=== PATIENT | female | born 1935 | race Caucasian/White ===

== ENCOUNTER → 2016-09-28 | Outpatient (REF) | payer MEDICARE ==
[2016-09-28 14:12] LABS: ALBUMIN 3.5 GM/DL (3.2-5.2); ALBUMIN/GLOBULIN RATIO 1.09 (1.00-1.93); BILIRUBIN,TOTAL 0.4 MG/DL (0.2-1.0); CALCIUM LEVEL 9.1 MG/DL (8.8-10.2); CREATININE FOR GFR 1.15 MG/DL (0.55-1.02); FREE T4 1.31 NG/DL (0.76-1.46); GLOMERULAR FILTRATION RATE 48.3 (>32); POTASSIUM SERUM 4.5 MEQ/L (3.5-5.1); TOTAL PROTEIN 6.7 GM/DL (6.4-8.2)
== END ==
LOC: M LABDRAW1 12:55
PROVIDERS: ATTEND Emergency Medicine
DX: E78.2 Mixed hyperlipidemia (principal); I10 Essential (primary) hypertension; E03.9 Hypothyroidism, unspecified; E55.9 Vitamin D deficiency, unspecified; R73.01 Impaired fasting glucose

== ENCOUNTER → 2017-02-16 | Outpatient (CLI) | payer MEDICARE ==
--- NOTE | 2017-02-16 12:56 | REP ---
Clinical: Dyspnea . Comparison: None . Technique: PA and lateral. Findings: The mediastinum and cardiac silhouette are normal. The lung nogueira are clear and without acute consolidation, effusion, or pneumothorax. The skeletal structures are intact and normal. Impression: 1. No acute cardiopulmonary process. Signed by Hayden Ernst MD 02/16/2017 12:47 P
== END ==
LOC: M WUC 12:23
PROVIDERS: ATTEND Emergency Medicine
DX: R06.00 Dyspnea, unspecified (principal)

== ENCOUNTER → 2018-10-13 | Outpatient (CLI) | payer MEDICARE ==
--- NOTE | 2018-10-13 10:11 | REP ---
Clinical: Preoperative assessment . Comparison: 02/16/2017 . Technique: PA and lateral. Findings: The mediastinum and cardiac silhouette are normal. The lung nogueira are clear and without acute consolidation, effusion, or pneumothorax. The skeletal structures are intact and normal. Impression: 1. No acute cardiopulmonary process. Electronically Signed by Hayden Ernst MD 10/13/2018 10:03 A
== END ==
LOC: M WUC 08:45
PROVIDERS: ATTEND Obstetrics & Gynecology
DX: R07.1 Chest pain on breathing (principal); C51.9 Malignant neoplasm of vulva, unspecified

== ENCOUNTER → 2018-10-25 | Outpatient (CLI) | payer MEDICARE ==
[2018-10-25 13:38] LABS: ALBUMIN 3.3 GM/DL (3.2-5.2); BILIRUBIN,TOTAL 0.4 MG/DL (0.2-1.0); CALCIUM LEVEL 8.7 MG/DL (8.8-10.2); CHOLESTEROL RISK RATIO 5.225 (<5); FREE T4 1.34 NG/DL (0.76-1.46); GLOMERULAR FILTRATION RATE 56.5 (>32); POTASSIUM SERUM 4.4 MEQ/L (3.5-5.1); THYROID STIMULATING HORMONE 1.38 uIU/ML (0.358-3.740); TOTAL PROTEIN 6.6 GM/DL (6.4-8.2)
[2018-10-25 14:22] LABS: HEMOGLOBIN A1c 5.6 %
== END ==
LOC: M WUC 09:06
PROVIDERS: ATTEND Family Medicine
DX: I10 Essential (primary) hypertension (principal); R73.01 Impaired fasting glucose; E03.9 Hypothyroidism, unspecified

== ENCOUNTER → 2019-03-08 | Outpatient (REF) | payer MEDICARE ==
[~2019-03-08] MED LIST: ASPI81CH33 PO; CALC-190 PO; IRON65TA2 PO; LEVO100T5 PO; METO50TA7 PO; VITA500T40 PO; [UNRECOGNIZED DRUG - OTHER] PO
[2019-03-08 13:16] LABS: APPEARANCE, URINE CLOUDY (CLEAR); BACTERIA, URINE AUTO 1+ (NEGATIVE); BILIRUBIN, URINE AUTO NEGATIVE (NEGATIVE); BLOOD, URINE BLOOD NEGATIVE (NEGATIVE); COLOR, URINE YELLOW (YELLOW); GLUCOSE, URINE (UA) AUTO NEGATIVE (NEGATIVE); KETONE, URINE AUTO NEGATIVE (NEGATIVE); LEUKOCYTE ESTERASE, URINE AUTO 3+ (NEGATIVE); MUCUS, URINE SMALL (NEGATIVE); NITRITE, URINE AUTO NEGATIVE (NEGATIVE); PROTEIN, URINE AUTO NEGATIVE (NEGATIVE); RBC, URINE AUTO 8 /HPF (0-3); SPECIFIC GRAVITY URINE AUTO 1.017 (1.002-1.035); SQUAMOUS EPITHELIAL CELL UR AU 2 /HPF (0-6); UROBILINOGEN, URINE AUTO 0.2 mg/dL (0.0-2.0); WBC, URINE AUTO 19 /HPF (0-3)
== END ==
LOC: M LAB REF 12:51
PROVIDERS: ATTEND Physician Assistant Medical
DX: R32 Unspecified urinary incontinence (principal)

== ENCOUNTER → 2019-03-12 | Outpatient (CLI) | payer MEDICARE ==
[~2019-03-12] MED LIST changes: +CO Q200C10 PO; +CYAN500T3 PO; +MULTTAB58 PO
--- NOTE | 2019-03-13 15:35 | RADONC ---
RADIATION ONCOLOGY CONSULTATION NOTE DATE: 03/12/2019 CHART NUMBER: [id number] DIAGNOSIS: Vulvar cancer. STAGE: At least stage CRYSTAL, [id number] versus stage IVB, [id number]. ECOG PERFORMANCE STATUS: 1 CONSULTATION NOTE: Ms. 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 HISTORY OF PRESENT ILLNESS: The patient apparently had a lesion involving her left vulva and was seen by Dr. Dobson. On 11/24/2018, she underwent radical vulvectomy and left inguinal lymph node dissection. Pathology revealed a 12.7 cm poorly differentiated invasive squamous cell carcinoma with tumor present at the lateral margin of resection. A total of four left inguinal lymph nodes were sampled, two of the four lymph nodes were positive for metastatic disease with extranodal extension present. In addition, soft tissue in the left groin aspirate showed poorly differentiated squamous cell carcinoma. The depth of invasion was noted to be 3.3 cm for the primary mass. The patient subsequently went into some type of rehabilitation, but apparently reports that more recently she has noticed an increasing bulky mass progressing at her original site of disease. In addition, she reports that now it is spreading and has circumferentially involved her anal region and perianal area. She reports that she was told this was a hematoma. She is now presenting for my evaluation. PAST MEDICAL HISTORY: The patient's past medical history is positive for hepatitis with jaundice as well as hypertension. ALLERGIES: The patient is ALLERGIC to BARIUM. SOCIAL HISTORY: The patient had smoked one pack of cigarettes per day for many years. She quit [id number]. She does not abuse alcohol. FAMILY HISTORY: The patient's family history is positive for a father with cancer of some unknown type. Her mother also of unknown cancer. She has a brother with prostate cancer. REVIEW OF SYSTEMS: The patient's review of systems is positive for some strange discomfort or pain in the groin area episodically and a bulky feeling causing some difficulty with comfortable walking. She also reports some fatigue and loss of appetite. Her review of systems is otherwise noncontributory. She denies nausea, vomiting, fevers, chills, night sweats, diplopia, headaches, anxiety or depression, anorexia, weight loss, visual disturbances, chest pain, urinary or bowel difficulties, bone pain, or neurological problems. PHYSICAL EXAMINATION: The patient is a well-developed, well-nourished female in no acute distress. HEENT exam is normocephalic, atraumatic. Extraocular movements are intact. There is no palpable cervical, supraclavicular, infraclavicular, axillary, or inguinal lymphadenopathy present. Lungs are clear to auscultation and percussion. Heart has a regular rate and rhythm. Abdomen is benign with no hepatosplenomegaly, masses, or tenderness. Skeletal examination reveals no tenderness to pressure or percussion of the bony skeleton. Extremities reveal no clubbing, cyanosis, or edema. Neurologic exam is grossly intact, as is the remainder of the physical examination. Genital examination reveals a large discolored mass involving the vulva, which is bulky and measures approximately 7 cm in all directions. The nodular disease extends down and is involving the anal/rectal area and the perianal area circumferentially. This is all fixed and nodular throughout. Digital rectal examination because of this was not attempted. The inguinal scars are well-healed. ASSESSMENT: Clearly, we have any significant progression of disease here since surgery 3-1/2 months ago. I have explained to this patient that this is not a hematoma and that, clearly, this is disease. Indeed at this point, the vulvar lesion is breaking through the skin. I have placed this patient on our list for discussion at our multidisciplinary tumor conference tomorrow. In addition, I have spoken with our medical oncologist, Dr. Sasha Rueda MD to see if we can expedite her consultation with medical oncology as well. In addition, I am ordering a PET scan to further stage this patient. Clearly, we have some rapidly progressive disease here, and distant metastatic disease is likely and needs to be checked and evaluated on. I have discussed with the patient in detail the potential benefits as well as potential side effects of external beam radiation therapy in attempt to achieve some type of local control. We discussed logistics of treatment planning, simulation subsequent fractionated daily radiation treatments. I have scheduled the patient for CT simulation and subsequent initiation of treatment planning, which will be completed once the PET scan is obtained. Further recommendations will be made following our tumor board tomorrow. Unfortunately, considering the amount of disease at this point, even radiation with systemic therapy is unlikely to achieve any long-term control of this disease. We are attempting, however, to deliver some type of palliation hopefully for some extended time period of local control. cc: MD Sasha Munoz MD Karen Williams, MD
== END ==
LOC: M ONCR 12:56
PROVIDERS: ATTEND Radiology Radiation Oncology
DX: C51.9 Malignant neoplasm of vulva, unspecified (principal)

== ENCOUNTER → 2019-03-20 | Outpatient (CLI) | payer MEDICARE ==
[~2019-03-20] MED LIST changes: +MS C15TA8 PO; +ONDA-83 PO; +OXYC-517 PO; +SILV40CR TOP
--- NOTE | 2019-03-21 15:21 | REP ---
HISTORY: New diagnosis of aggressive squamous cell carcinoma of the vulva. COMPARISON: There are no priors for comparison. After the intravenous administration of 8.43 mCi of FDG-18 triplane whole body PET/CT was performed from the skull base to the mid thigh. There is intense hypermetabolic activity seen on the left in the paravulvar region. This is seen arising from a mass in the left anterior perineum which measures approximately 6.9 x 6.9 x 6.8 cm. The periphery of this mass has the highest SUV values which are approximately 15. The central area of the mass is devoid of hypermetabolism suggesting central necrosis. Within the perineum between the mass and the anus, there is linear hypermetabolism with SUV values ranging from 3.5 to 5.9. There is no evidence of hypermetabolic lymphadenopathy. The CT component of today's examination shows hyperdensity within the gallbladder essentially unchanged from an outside CT of 11/14/2018. There is no evidence of hypermetabolic lymphadenopathy. The CT component of today's examination shows hyperdensity within the gallbladder essentially unchanged from an outside CT of 11/14/2018. There is hypermetabolism in multiple vertebral bodies with SUV values in the 3.5 to 3.7 range and rather diffusely suggestive of chemo reactive change. This needs to be correlated clinically. IMPRESSION: Large hypermetabolic mass in the pelvic region on the left as described above. Electronically Signed by José Manuel Al DO 03/21/2019 05:01 P
== END ==
LOC: M PLARAD 10:19
PROVIDERS: ATTEND Radiology Radiation Oncology
DX: C51.9 Malignant neoplasm of vulva, unspecified (principal)

== ENCOUNTER → 2019-03-22 | Outpatient (CLI) | payer MEDICARE ==
[~2019-03-22] MED LIST changes: +LIDOCAINE 1% MDV 20ML VIAL As Ordered ONE; +MIDAZOLAM INJ 2 MG/2 ML VIAL (J2250) As Ordered ONE; -MS C15TA8 PO; -ONDA-83 PO; -SILV40CR TOP; +ceFAZolin 1GM INJ (J0690 PER 500MG) As Ordered ONE; +ceFAZolin 1GM INJ (J0690 PER 500MG) IV ONE; +diphenhydrAMINE INJ 50MG/ML VIAL (J1200) As Ordered ONE; +fentaNYL 100 MCG/2 ML INJECTION (J3010) As Ordered ONE
--- NOTE | 2019-03-22 09:07 | IRHP ---
[facility] IR Pre-Procedure H & P General Date of Service: Mar 22, 2019 Procedure: Same Day Surgery Interval History and Physical I have seen the patient and reviewed last H & P performed within 30 days. There is no significant interval change. History of Present Illness Chief Complaint The patient is a 83-year-old female admitted with vulva cancer here for port placement for CHEMO. PRE-PROCEDURE DIAGNOSIS: vulva ca HEART: normal rate LUNGS: normal breathing at rest ASA Classification ASA Classification: II-Mild systemic disease Mallampati Score: I NPO: Yes Problems with prior sedation: No Obstructive Sleep Apnea: No Plan moderate sedation Allergies Coded Allergies: No Known Allergies (Unverified , 03/20/19) Home Medications Scheduled Aspirin (Aspirin), 81 MG PO DAILY, (Reported) Calcium Carbonate/Vitamin D3 (Calcium 1,000 + D3 Caplet), 1 TAB PO DAILY, (Reported) Cyanocobalamin (Vitamin B-12) (Vitamin B-12), 500 MG PO DAILY, (Reported) Cyanocobalamin (Vitamin B-12) (Vitamin B-12), 1 TAB PO DAILY, (Reported) Ferrous Sulfate (Iron), 325 MG PO DAILY, (Reported) Levothyroxine Sodium (Levothyroxine Sodium), 100 MCG PO DAILY, (Reported) Metoprolol Tartrate (Metoprolol Tartrate), 50 MG PO BID, (Reported) Ubidecarenone (Coenzyme Q10), 100 MG PO DAILY, (Reported) Ubidecarenone (Co Q-10), 1 CAP PO DAILY, (Reported) Miscellaneous Medications Iron Aspgly/C/B12/FA/Ca-Th/Suc (Multigen Folic Caplet), 1 TAB PO, (Reported) VS, I&O, 24H, Fishbone Vital Signs/I&O Vital Signs Date Time Temp Pulse Resp B/P (MAP) Pulse Ox O2 Delivery O2 Flow Rate FiO2 03/22/19 08:34 97.4 52 18 97 TORIE BIGGS MD Mar 22, 2019 09:07
--- NOTE | 2019-03-22 10:08 | POST-OPPD ---
Postoperative Procedure Note Date Of Procedure: Mar 22, 2019 Time Of Procedure: 10:07 PREOPERATIVE DIAGNOSIS: vulva cancer POSTOPERATIVE DIAGNOSIS: vulva cancer FINDINGS: patent right IJ vein PROCEDURE: right IJ port SURGEON: billie ANESTHESIA: moderate sedation ESTIMATED BLOOD LOSS: < 5 ml COMPLICATIONS: none POSTOPERATIVE CONDITION: stable TORIE BIGGS MD Mar 22, 2019 10:08
[2019-03-22 12:09] VITALS: BP 180/70
--- NOTE | 2019-03-22 13:01 | REP ---
IR Ultrasound and fluoroscopy-guided port placement. IR Ultrasound of the neck. IR Moderate sedation. Clinical information: Vulva cancer. Port for chemotherapy. Physician: Dr. Arreola. Procedure: The patient was advised of the benefits, risks, and alternatives of the procedure and informed consent was obtained. A time-out was performed with verification of the patient's name, MRN, site of procedure and type of procedure to be performed. The patient was positioned in the supine position on the angiographic table. The site was prepped and draped in the usual sterile fashion. Moderate sedation was performed by the physician including the presence of an independent trained observer who assisted and monitored the patient's level of consciousness and physiologic status. Following the administration of Fentanyl and Versed, the physician spent 45 minutes of continuous face to face time with the patient. Ultrasound of the neck reveals a patent and compressible right internal jugular vein. A pipe finishing supervisor radiograph reveals nil significant. The neck and anterior chest wall were anesthetized with lidocaine. The right internal jugular vein was accessed using a microintroducer needle by a lateral approach. An 0018 wire was advanced into the superior vena cava, the needle was removed and a microsheath was placed. An Amplatz wire was then passed into the inferior vena cava. An incision at the internal jugular vein access site and anterior chest wall were made using a scalpel. An incision was made at the anterior chest wall. A small pocket was created using a combination of blunt and sharp dissection. A tunneling device was then used to pass the catheter from the pocket to the neck puncture site. An 8-La[employer] smart power port was then positioned in the pocket. The catheter was then measured and cut. The introducer sheath was exchanged for a peel-away sheath. The catheter was passed through the peel-away sheath into the internal jugular vein and the peel-away sheath was removed. The port tip was positioned at the cavo atrial junction. The port was then accessed with a Jacob needle. The port flushes and aspirates well. The puncture site in the neck was closed. The chest wall incision was then closed with 2-0 Vicryl and 4-0 Monocryl. Glue and Steri-Strips were applied. A sterile dressing was then applied. The patient tolerated the procedure well and was returned to the PRU in stable condition. Estimated blood loss: <5 ml. Complications: None. Conclusion: 1. Successful placement of an 8-La[employer] smart power port via the right internal jugular vein. The port is ready for immediate use. 2. Patient to follow up in IR clinic in 2 weeks. Thank you for this referral. Electronically Signed by Carol Arreola MD 03/22/2019 01:00 P
== END ==
LOC: M IRPRO 08:24
PROVIDERS: ATTEND Radiology Diagnostic Radiology
DX: C51.9 Malignant neoplasm of vulva, unspecified (principal); Z79.899 Other long term (current) drug therapy; Z79.82 Long term (current) use of aspirin
CPT/HCPCS: 36563; 76937; 77001; 99152; 99153; C1769; C1788; C1894; J0690; J1200; J2250; J3010

== ENCOUNTER 2019-04-12 11:03 | Outpatient (RCR) | payer MEDICARE ==
--- NOTE | 2019-03-28 08:26 | RADONC ---
RADIATION ONCOLOGY SIMULATION NOTE DATE: 03/26/2019 CHART NUMBER: [id number] DIAGNOSIS: Vulvar cancer. STAGE: [id number]. ECOG PERFORMANCE STATUS: 1 SIMULATION NOTE: The patient was brought into the simulator and an immobilization device was constructed for accurate day-to-day treatments. The patient tolerated the formation of the immobilization device quite well with no significant untoward side effects. She was placed in a supine position with a frog-leg positioning of her lower extremities. CT images were obtained throughout the abdomen and pelvic region in order to allow us to contour both the planned treatment volume as well as critical surrounding structures. The patient tolerated the CT simulation quite well. I was present during the entire time of the simulation and there were no untoward side effects. A treatment plan will be generated from the contoured images obtained. [facility]
--- NOTE | 2019-04-10 08:27 | RADONC ---
RADIATION ONCOLOGY PROGRESS NOTE DATE: 04/08/2019 CHART #: [id number] Ms. Lloyd has received her third fraction of radiation today for a dose of 540 cGy. The patient came in today reporting that she is having a lot of burning and discomfort in the groin area which she is attributing to radiation. She also has some oozing discharge from the necrotic tumor. REVIEW OF SYSTEMS: Unchanged. PHYSICAL EXAMINATION: The tumor has broken through the skin and is now at least a 4 cm unga of necrotic area exposed. There is no radiation change, erythema or tanning. There is no moist or dry desquamation. The remainder of her physical exam remains unchanged. Unfortunately for this patient, she has a massive pelvic necrotic lesion. I informed her that the entire purpose of this treatment is to try and obtain some type of control of this area in order to alleviate her discomfort. I have therefore encouraged her to continue with radiation. In addition, I let her know that she has only had two fractions of radiation and that her discomfort is not related to radiation burning. Indeed, she has no evidence of radiation change on her skin at all.
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
[~2019-04-12 11:03] MED LIST changes: -LIDOCAINE 1% MDV 20ML VIAL As Ordered ONE; -MIDAZOLAM INJ 2 MG/2 ML VIAL (J2250) As Ordered ONE; +ONDA4TAB5 PO; -ceFAZolin 1GM INJ (J0690 PER 500MG) As Ordered ONE; -ceFAZolin 1GM INJ (J0690 PER 500MG) IV ONE; -diphenhydrAMINE INJ 50MG/ML VIAL (J1200) As Ordered ONE; -fentaNYL 100 MCG/2 ML INJECTION (J3010) As Ordered ONE
[2019-04-24] MEDS ORDERED: OXYC-517 PO (14:11)
== END 2019-04-13 ==
LOC: M ONCR 11:03
PROVIDERS: ATTEND Radiology Radiation Oncology
DX: C51.9 Malignant neoplasm of vulva, unspecified (principal)

== ENCOUNTER → 2019-05-13 | Outpatient (RCR) | payer MEDICARE ==
--- NOTE | 2019-04-17 09:10 | RADONC ---
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 CHART #: [id number] Mrs. Lloyd is currently receiving local regional radiotherapy because of a diagnosis of squamous cell carcinoma of the vulva. Her current dose is 1440 cGy of an anticipated 4500 cGy. She has the anticipated irritation in the vulvar area, but denies any nausea, vomiting, diarrhea, significant dysuria, or blood per rectum. She does have some incontinence. Her energy level is diminished. The patient continues to have a significant amount of pain. REVIEW OF SYSTEMS: The remainder of the review of systems is unchanged. EXAMINATION FINDINGS: The skin within the irradiated volume shows a brisk erythematous blush without confluent desquamation. There is no obvious palpable peripheral lymphadenopathy. The tumor located in the left labial area appears to be visually smaller than when we first initiated treatment and much of the skin overlying the vulvar area has been replaced by a hopefully re-epithelializing area of ulceration. There is a foul smelling odor consistent with necrotic tissue. No other changes are noted by physical examination. IMPRESSION: Tolerating therapy well with at least a minimal early clinical response. PLAN: Treatments to continue.
--- NOTE | 2019-04-22 13:46 | RADONC ---
RADIATION ONCOLOGY PROGRESS NOTE DATE: 04/22/2019 CHART NUMBER: [id number] PROGRESS NOTE: Mrs. Lloyd with a diagnosis of a malignant neoplasm of the left vulva for stage T3N2c, M0 is currently receiving local regional radiotherapy and she is at a dose of 1980 cGy of an anticipated 4500 cGy and reevaluate. Thus far, she is definitely having a response with significant erythema and focal desquamation involving the perineum. She has no overt signs of infection, however there is significant tumor necrosis. The large vulvar lesion appears subjectively smaller and some focal areas of desquamation are also noted within the perineum. The patient is generally fatigued and it is hard for her to make this journey into this department on a daily basis. However, she is willing to do so if she can benefit [facility] from the journey. I think overall the tumor appears to be responding and she denies any nausea, vomiting, coughing, sputum production or hemoptysis. Her energy level is significantly diminished. The remainder of the review of systems is unchanged. EXAMINATION FINDINGS: The skin within the irradiated volume does show focal desquamation with a large centrally necrotic tumor, which is definitely responding to the radiation located in the left vulvar area. No additional palpable masses are appreciated. Lungs are clear. There is no peripheral lymphadenopathy. The remainder of the physical examination is unchanged. IMPRESSION: Tolerating therapy well with some subjective clinical improvement. PLAN: I have again encouraged sitz baths and may attempt to place the patient on some topical antibiotic ointment over the next several days. We are watching her skin carefully.
--- NOTE | 2019-05-01 13:04 | RADONC ---
RADIATION ONCOLOGY PROGRESS NOTE DATE: 04/29/2019 CHART #: [id number] Ms. Lloyd is presently at a dose of 2340 cGy to her vulvar region. She continues to have pain and drainage. She also continues to have diarrhea, reports that she has not taken the Imodium today. She reports that she is out of Imodium. REVIEW OF SYSTEMS: The patient's review of systems is positive for pelvic pain, drainage, discharge and diarrhea. The patient's review of systems is noncontributory. Denies nausea, vomiting, fevers, chills, night sweats, diplopia, headaches, anxiety or depression, anorexia, weight loss, visual disturbances, chest pain, urinary or bowel difficulties, bone pain, or neurological problems. PHYSICAL EXAMINATION: The massive pelvic lesion has continued to ulcerate and necrose. There is discharge from the skin. It appears to be responding to radiation. There is quite a bit of discharge which appears to be tumor. The bulge that was present at initial treatment is much better. The remainder of physical exam remains unchanged. I had a lengthy discussion with this patient and her once again. I do not believe this pain is at all related to radiation and indeed I see no significant radiation erythema or desquamation. This pain is secondary to her massive tumor which appears to be responding to treatment and therefore I encouraged her to continue with RT. The diarrhea, however, I am sure is related to radiation. Once again, we have given this patient a list of dietary instructions and a strong recommendation to begin using Imodium. I let her know that there are stronger medications for the diarrhea that I am willing to give, but they are there somewhat more expensive and not [id number]. I have recommended that she start with the Imodium and we will continue to follow her closely. In the meantime, it seems that we are getting a decent response at this point at such a low dose to radiation.
--- NOTE | 2019-05-07 16:15 | RADONC ---
RADIATION ONCOLOGY PROGRESS NOTE DATE: 05/06/2019 CHART NUMBER: [id number] PROGRESS NOTE: Ms. Lloyd is presently at a dose of 2880 cGy to her vulva. She continues have discharge and a large open necrotic wound, which does appear to be responding to radiation. She is complaining of pain in this area. She is also complaining of discharge. On physical exam, there continues to be an open necrotic wound which is oozing in the pelvic area. The remainder of her physical exam is otherwise unchanged. Ms. Lloyd is continuing to have difficulties. Radiation for now will continue.
--- NOTE | 2019-05-14 06:51 | RADONC ---
RADIATION ONCOLOGY PROGRESS NOTE DATE: 05/13/2019 CHART NUMBER: [id number] Ms. Lloyd is thus far at a dose of 3600 cGy to her vulva and continues to complain of pain and discomfort in that area. REVIEW OF SYSTEMS: The patient's review of systems is positive for drainage as well as pain, discomfort and diarrhea. It is otherwise noncontributory. She denies nausea, vomiting, fevers, chills, night sweats, diplopia, headaches, anxiety or depression, anorexia, weight loss, visual disturbances, chest pain, urinary or bowel difficulties, bone pain, or neurological problems. PHYSICAL EXAMINATION: On physical exam there is some brisk skin reaction with areas of moist desquamation. Mostly this is located in the skin fold region. The tumor however has responded nicely. Where there was once a bulging large mass, the tumor has largely necrosed and oozed out. There is now a cavity surrounded by some residual tumor measuring just a few centimeters wide. The remainder of her physical exam remains unchanged. Overall, Ms. Lloyd has done quite nicely with a remarkably good response at this point. We are planning on continuing radiation as scheduled. I did schedule her to be treated to a dose of 4500 cGy. I have placed her on discussion at our multidisciplinary tumor conference to see whether or not, if we do get a good response, if she could be reconsidered for surgery. If not, we may boost this with further radiation. Up until this point we have clearly treated her as though this was purely palliative, which it most likely is. Considering her excellent response, however, reevaluation may be worth undertaking once we complete the 4500 cGy.
== END ==
LOC: M ONCR 04-16 11:06
PROVIDERS: ATTEND Radiology Radiation Oncology
DX: C51.9 Malignant neoplasm of vulva, unspecified (principal)

== ENCOUNTER 2019-06-07 10:56 | Outpatient (RCR) | payer MEDICARE ==
--- NOTE | 2019-05-21 10:12 | RADONC ---
RADIATION ONCOLOGY PROGRESS NOTE DATE: 05/20/2019 CHART NUMBER: [id number] PROGRESS NOTE Ms. Lloyd is thus far at a dose of 4140 cGy to her pelvis and was last treated on 05/16/2019. The patient came in today complaining of a great deal of pain and discomfort. She reports that it has been getting continuously worse. On physical exam, there is brisk moist desquamation throughout the entire radiated groin region. This extends down to the patient's anal area. The tumor itself has responded nicely and is much smaller and largely just an open cavity. The remainder of her physical exam remains unchanged. I have placed this patient on rest this week. She has my cell phone number and we are available to her at anytime. I do not think she can tolerate any further radiation at this point without a break. The patient reports that she is out of her pain medication, which has been given to her by her medical oncologist, Dr. Rueda. I am more than happy to prescribe further pain medication for her, but apparently I have been told that Dr. Rueda has renewed it. I will pursue this and see whether or not it has been renewed or not. Clearly if it is not renewed I would be more than glad to renew it myself. She has been given skin care instructions and we will reevaluate her in a week or so to see if we can restart treatment.
--- NOTE | 2019-05-27 14:32 | RADONC ---
RADIATION ONCOLOGY PROGRESS NOTE DATE: 05/27/2019 CHART NUMBER: [id number] Ms. Lloyd is thus far a dose of 4140 cGy to her vulva and was last treated on 05/16/2019. The patient developed and extremely brisk skin reaction with moist desquamation throughout the entire radiated field causing her a great deal of discomfort. In light of this, she remains on rest at least throughout this week. We will be seeing her again on Monday next week for reevaluation. I have spoken with the patient's medical oncologist today about possible surgical referral to see if she would be a surgical candidate.
--- NOTE | 2019-06-04 08:31 | RADONC ---
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 She also had been receiving carboplatin chemotherapy. Her current dose was 4320 cGy of an anticipated 5040 cGy and she had been placed on a rest because of the fact that she had a significant skin irritation and pain. She also did not receive her last dose of chemotherapy. She comes back today from being on an interruption. She returns with significant improvement of her overall tumor, now measuring approximately 4.5-5 cm. There is a large ulceration over the tumor where it occasionally drains; however, today it has not been draining any fluid. The patient has complained of a great deal of irritation in the groin area and it was because of the irritation that the patient was placed on rest. REVIEW OF SYSTEMS: She denies any nausea or vomiting, but does have generalized aches and pains as well as a brisk erythematous reaction in the groin area which has been uncomfortable to her. She claims that the pain is slightly better today. She also feels that the drainage has slowed considerably. The remainder of the review of systems is unchanged. EXAMINATION: The tumor has reduced in size significantly. The skin irritation also appears to be somewhat better. The ulcerative area which represents tumor necrosis is also decreased in size. IMPRESSION: The patient returns today after a rest in treatment with improvement. PLAN: I would like to finish her prescribed treatments to 5040 cGy. The tumor is actually reduced in size to the point where I think it might be reasonable to ask for a surgical consultation to see if this area could be excised. As you recall, the PET scan revealed that this was her only area of disease and it might be well worth having a consult with a gynecologic oncologist regarding removal in approximately 4-5 weeks. Otherwise, she will continue with her treatments to 5040 cGy. MTDD
[~2019-06-07 10:56] MED LIST changes: +SILV40CR TOP
--- NOTE | 2019-06-08 10:42 | RADONC ---
RADIATION ONCOLOGY TREATMENT SUMMARY DATE OF SERVICE: 06/07/2019 CHART NUMBER [id number] DIAGNOSIS: Vulvar cancer. STAGE: Minimal stage IV A, L4I0hO5, ECOG performance status one. Plan of radiotherapy initially was felt to be palliative radiotherapy. However the patient underwent a PET scan which revealed only local disease and no disease elsewhere. Date radiation therapy started 04/04/2019. Date radiotherapy completed 06/07/2019. DOSE: The patient received a total of 5040 cGy administered in 28 fractions over 64 elapsed days. Prior to treatment delivery, localization was accomplished upon our CT simulator and treatment portals defined by the use of multiple leaf collimators. The patient was treated via IMRT initially to 4500 cGy and a field reduction was thereafter initiated for an additional three fractions bringing her total dose to the aforementioned 5040 cGy. All treatments were administered via IMRT and a 6MV photon beam was employed for treatment delivery which was assessed at the 100% isodose line. STATUS OF TUMOR: The patient had a fairly dramatic response to her radiotherapy and combination chemotherapy with significant reduction. TOLERANCE: In general, the treatments were poorly tolerated with skin irritation which is normal when treating areas such as the vulva, however nonetheless, she still experienced this excellent tumor response rate. We will consider having her return to see if there could be a possibility of resection of any residual tumor. She was instructed to return to her referring physicians as per their directions and instructions and we would like to see her back in approximately 1 month. Thank you for referring this andrew lady to us and allowing us the opportunity of participation in her overall management. cc: MD Sasha Munoz MD Karen Williams, MD
--- NOTE | 2019-06-11 06:44 | RADONC ---
RADIATION ONCOLOGY PROGRESS NOTE DATE: 06/10/2018 CHART #: [id number] Ms. Lloyd completed a course of radiation therapy for recurrent vulvar carcinoma on 06/07/2019. I had a conversation with Dr. Bárbara Ulrich, the PRESCHOOL ASSISTANT oncologist in [place], and am referring this patient to her for discussion of possible post radiation surgery in attempt to obtain local control. I have discussed this case in detail on multiple occasions with our multidisciplinary tumor conference as well as with the other radiation oncologist here Dr. Bazan and the consensus appears to be that if surgery is possible this patient may benefit from that since on PET scan it is the only site of localized disease and there has been an excellent response with radiation and systemic therapy thus far. As mentioned above, Dr. Ulrich has agreed to see this patient in consultation. In addition, she requested that we order CT scans of the chest, abdomen and pelvis to rule out widely metastatic disease. The PET scan done on 03/20/2019 showed no evidence of metastatic disease. I think it reasonable at this time prior to putting the patient through surgery to reevaluate and I am in full agreement with Dr. Ulrich. In addition, the patient is scheduled see us in routine followup in 4 weeks as well. cc: MD Sasha Mendez MD
== END 2019-06-13 ==
LOC: M ONCR 10:56
PROVIDERS: ATTEND Radiology Radiation Oncology
DX: C51.9 Malignant neoplasm of vulva, unspecified (principal)

== ENCOUNTER → 2019-06-17 | Outpatient (CLI) | payer MEDICARE ==
[~2019-06-17] MED LIST changes: +GASTROGRAFIN SOLUTION 30ML (Q9963) As Ordered ONE; +ISOVUE-370 76% 100ML VIAL (Q9967) As Ordered ONE
--- NOTE | 2019-06-18 09:04 | REP ---
CT CHEST WITH IV CONTRAST: HISTORY: Malignant neoplasm of the vulva. Comparison chest x-ray October 13, 2018. Comparison PET/CT March 20, 2019. CT CONTRAST DOSE: 100 mL of intravenous Isovue 370. CT FINDINGS: There is no evidence of pleural or pericardial effusion. No hilar or mediastinal mass is seen. No definite adenopathy is seen. There are multiple normal-sized lymph nodes in the superior mediastinum adjacent to the great vessels and upper trachea and esophagus. These are unchanged from the PET/CT from March 20, 2019 when they showed no avidity. None is pathologically enlarged. No extrathoracic mass or adenopathy is observed. Lung window settings show pleuroparenchymal fibrosis changes in the apices bilaterally unchanged from the PET/CT. No pulmonary mass, infiltrate, or significant pulmonary nodule is appreciated. There are mild emphysematous changes in the upper lobes bilaterally. There is a tiny calcified granulomatous nodule in the left lower lobe on page 65 of 102 in series 3 of 4 of today's study. This measures 3.7 mm. No bony destructive lesion is seen. There is a right-sided Jpcmzi-C-Sfui catheter. Vascular calcification is noted. IMPRESSION: No active cardiopulmonary disease. There is evidence of bilateral upper lobe emphysematous change. Electronically Signed by Feliberto Malhotra MD 06/18/2019 03:27 P
--- NOTE | 2019-06-18 09:06 | REP ---
CT ABDOMEN AND PELVIS WITHOUT AND WITH IV CONTRAST: With oral contrast. HISTORY: Malignant neoplasm of the vulva. Squamous cell carcinoma. The patient is status post vulvectomy and radiation therapy. Comparison CT abdomen and pelvis study is from November 14, 2018. Comparison PET/CT study images March 20, 2019. CT CONTRAST DOSE: 100 mL of intravenous Isovue [address] FINDINGS: Preliminary digital rail detector car operator radiograph demonstrates a normal bowel gas pattern. There is no evidence of pleural effusion or upper abdominal ascites. The liver and the spleen are normal in size homogeneous in texture. There is a layering of high attenuation sludge or gravel- like calculi in the gallbladder lumen unchanged from comparison study November 14, 2018. No abnormality is noted in the pancreas. No adrenal lesion is seen on either side. The kidneys enhance symmetrically. They are tiny cortical cysts on the left. No hydronephrosis or mass is seen. No upper abdominal adenopathy is observed. Heavy vascular calcification is seen in a normal caliber aorta. Normal appendix is seen in the right lower quadrant. Small and large intestinal bowel loops are remarkable only for some sigmoid colon diverticulosis without CT evidence of diverticulitis. No abdominal wall defect is seen. There is no evidence of pelvic mass or adenopathy. Postop changes are noted in the left inguinal soft tissues. There is postoperative deformity in the midline inferior perineum, which is incompletely included in the imaging field of view. Soft tissue thickening in the median perineum distal to the anus is observed. This appears improved compared to the November 14, 2018 study. There is also a irregular shaped 3.8 cm soft tissue mass with heterogeneous enhancement in the left side of the mons pubis. This is also incompletely included in the field of view but appears significantly improved from the March 20, 2019 PET/CT study. No inguinal adenopathy is appreciated. The patient appears to be status post left inguinal lymphadenectomy. Bone window settings show no bony destructive lesion. IMPRESSION: No upper abdominal or intrapelvic adenopathy is seen. Post-treatment changes with improvement in the region of the mass and the mons pubis. Postoperative changes appear improved in the more posterior perineum. No new adenopathy is seen. Left colonic diverticulosis. There is high-density sludge in a somewhat dilated gallbladder again noted. Electronically Signed by Feliberto Malhotra MD 06/18/2019 03:27 P
== END ==
LOC: M RAD 14:54
PROVIDERS: ATTEND Radiology Radiation Oncology
DX: C51.9 Malignant neoplasm of vulva, unspecified (principal)
CPT/HCPCS: 71260; 74178; Q9963; Q9967

== ENCOUNTER → 2019-07-09 | Outpatient (CLI) | payer MEDICARE ==
[~2019-07-09] MED LIST changes: -GASTROGRAFIN SOLUTION 30ML (Q9963) As Ordered ONE; -ISOVUE-370 76% 100ML VIAL (Q9967) As Ordered ONE
[2019-07-09 13:24] LABS: ALBUMIN 3.2 GM/DL (3.2-5.2); BILIRUBIN,TOTAL 0.4 MG/DL (0.2-1.0); CALCIUM LEVEL 9.3 MG/DL (8.8-10.2); CREATININE FOR GFR 1.04 MG/DL (0.55-1.30); POTASSIUM SERUM 4.1 MEQ/L (3.5-5.1); TOTAL PROTEIN 7.5 GM/DL (6.4-8.2)
== END ==
LOC: M ONCM 11:21
PROVIDERS: ATTEND Obstetrics & Gynecology
DX: C51.9 Malignant neoplasm of vulva, unspecified (principal)

== ENCOUNTER → 2019-07-17 | Outpatient (CLI) | payer MEDICARE ==
[~2019-07-17] MED LIST changes: +SODIUM CHLORIDE 0.9% INJ 10 ML SYR IV PRN
== END ==
LOC: M ONCM 12:44
PROVIDERS: ATTEND Family Medicine
DX: C51.9 Malignant neoplasm of vulva, unspecified (principal)

== ENCOUNTER → 2019-07-17 | Outpatient (REF) | payer MEDICARE ==
[~2019-07-17] MED LIST changes: -SODIUM CHLORIDE 0.9% INJ 10 ML SYR IV PRN
[2019-07-17 16:07] LABS: BASO % 0.4 % (0.0-1.0); CALCIUM LEVEL 9.3 MG/DL (8.8-10.2); CREATININE FOR GFR 1.05 MG/DL (0.55-1.30); EOS # 0.3 10^3/uL (0.0-0.5); GLOMERULAR FILTRATION RATE 53.4 (>32); HEMATOCRIT 32.6 % (36.0-47.0); LYMPH # 0.7 10^3/uL (1.5-5.0); LYMPH % 10.4 % (24.0-44.0); MEAN CORPUSCULAR HGB CONC 30.7 g/dl (32.0-36.5); MEAN CORPUSCULAR VOLUME 97.9 fl (80.0-96.0); MONO # 0.8 10^3/uL (0.0-0.8); MONO % 11.6 % (0.0-5.0); NEUTROPHILS # 4.9 10^3/uL (1.5-8.5); NEUTROPHILS % 72.7 % (36.0-66.0); PLATELET COUNT, AUTOMATED 252 10^3/uL (150-450); POTASSIUM SERUM 4.3 MEQ/L (3.5-5.1); RED BLOOD COUNT 3.33 10^6/uL (4.00-5.40); WHITE BLOOD COUNT 6.7 10^3/uL (4.0-10.0)
== END ==
LOC: M LAB REF 13:26
PROVIDERS: ATTEND Family Medicine
DX: Z01.818 Encounter for other preprocedural examination (principal)

== ENCOUNTER → 2019-09-11 | Outpatient (CLI) | payer MEDICARE ==
[~2019-09-11] MED LIST changes: +MS C15TA8 PO; +ONDA-83 PO; -ONDA4TAB5 PO; +PROHANCE 279.3MG/ML 15ML VIAL (A9576) As Ordered ONE
--- NOTE | 2019-09-11 18:22 | REP ---
MRI PELVIS WITH AND WITHOUT CONTRAST: HISTORY: Vulva carcinoma. COMPARISON: CT 06/17/2019 and PET/CT 03/20/2019. TECHNIQUE: Multiple sequences obtained in the axial, coronal and sagittal planes prior to and following the intravenous administration of 7 mL ProHance. In the left anterior perineum the previously noted large hypermetabolic mass has decreased in size. Mild heterogeneous residual enhancement is seen with a somewhat lobulated nodular soft tissue mass now measuring about 3.1 x 2.5 cm. There is a band of contiguous enhancement extending posteriorly in the perineum at that level to the anus. This corresponds to the hypermetabolic uptake described on the PET scan of 03/20/2019. No adenopathy is seen in the inguinal regions. There is no pelvic adenopathy or mass. The uterus and ovaries appear unremarkable. There is sigmoid diverticulosis. There is no free fluid in the pelvis. No abnormal signal or enhancement is seen in the visualized osseous structures. IMPRESSION: Lobulated heterogenous masslike enhancement at the site of the previously noted mass in the left anterior perineum. Size has significantly decreased since the prior PET scan of 03/20/2019, 3.1 x 2.5 cm currently. There is a contiguous adjacent band of ill-defined enhancement extending from the mass , posteriorly in the perineum at that level, corresponding to the hypermetabolic band of increased uptake on the prior PET/CT, having a similar configuration. There is no mass or adenopathy within the pelvis more superiorly. Electronically Signed by Justen Chaudhry MD 09/13/2019 11:19 A
== END ==
LOC: M RAD 13:53
PROVIDERS: ATTEND Internal Medicine Hematology
DX: C51.9 Malignant neoplasm of vulva, unspecified (principal)
CPT/HCPCS: 72197; A9576

== ENCOUNTER 2019-10-19 11:37 | Inpatient (IN) | payer MEDICARE ==
[~2019-10-19] VITALS: Ht 157.5 cm; Wt 69.7 kg
[~2019-10-19 11:37] MED LIST changes: +CELE1CAP4 PO; +CIPR500T3; +EUCE1CRE2 TOP; -PROHANCE 279.3MG/ML 15ML VIAL (A9576) As Ordered ONE; +SENO8.6T5 PO
[2019-10-19 12:22] LABS: BASO % 0.3 % (0.0-1.0); EOS # 0.3 10^3/uL (0.0-0.5); EOS % 2.4 % (0.0-3.0); HEMATOCRIT 35.3 % (36.0-47.0); HEMOGLOBIN 10.8 g/dl (12.0-15.5); LYMPH # 0.6 10^3/uL (1.5-5.0); LYMPH % 4.8 % (24.0-44.0); MEAN CORPUSCULAR HEMOGLOBIN 27.3 pg (27.0-33.0); MEAN CORPUSCULAR HGB CONC 30.6 g/dl (32.0-36.5); MEAN CORPUSCULAR VOLUME 89.4 fl (80.0-96.0); MONO % 9.1 % (0.0-5.0); NEUTROPHILS # 9.5 10^3/uL (1.5-8.5); NEUTROPHILS % 82.4 % (36.0-66.0); PLATELET COUNT, AUTOMATED 211 10^3/uL (150-450); RED BLOOD COUNT 3.95 10^6/uL (4.00-5.40); WHITE BLOOD COUNT 11.5 10^3/uL (4.0-10.0)
[2019-10-19 13:16] LABS: INR 1.08; PARTIAL THROMBOPLASTIN TIME 27.3 SECONDS (25.0-38.4); PROTHROMBIN TIME 13.7 SECONDS (11.8-14.0)
[2019-10-19] MEDS ORDERED: NS 1,000 ML IV ONE (13:30)
--- NOTE | 2019-10-19 13:44 | REP ---
Sitting portable chest x-ray: Single view. History: Syncope/near syncope. Comparison study: October 13, 2018. Findings: A right-sided Vbnznj-T-Qtyh catheter is noted in place in the expected location of the superior vena cava. The heart is not enlarged. Interstitial markings are somewhat prominent in the apices with pleuroparenchymal fibrosis. This is unchanged from February 16, 2017. Pleural angles are sharp. There are skin folds overlying the right chest. Impression: Biapical pleuroparenchymal scarring. Otherwise no active disease. Right-sided Karkza-M-Riee catheter. Electronically Signed by Feliberto Malhotra MD 10/19/2019 03:12 P
[2019-10-19 14:02] LABS: BLOOD UREA NITROGEN 17 MG/DL (7-18); CALCIUM LEVEL 8.9 MG/DL (8.8-10.2); CARBON DIOXIDE LEVEL 29 MEQ/L (21-32); CHLORIDE LEVEL 103 MEQ/L (98-107); CK-MB VALUE MASS 5.8 NG/ML (<3.6); CPK CREATINE PHOSPHOKINASE 195 U/L (26-192); GLOMERULAR FILTRATION RATE > 60.0 (>32); GLUCOSE, FASTING 88 MG/DL (70-100); MAGNESIUM LEVEL 1.7 MG/DL (1.8-2.4); MB/CK RELATIVE INDEX 2.97 (< OR =4); POTASSIUM SERUM 4.1 MEQ/L (3.5-5.1); SODIUM LEVEL 138 MEQ/L (136-145); THYROID STIMULATING HORMONE 0.707 uIU/ML (0.358-3.740); TROPONIN I < 0.02 NG/ML (< 0.10)
[2019-10-19] MEDS ORDERED: MAG SULF 1GM/100ML (MAG RUN) 1 GM in IV 1 EA IV ONE (15:45)
[2019-10-19] MEDS ORDERED: NORCO, ANEXSIA 5/325MG TABLET (HYDROcodone/ACETAMINOPHEN) PO ONE (17:15)
[2019-10-19] MEDS ORDERED: ONDANSETRON 4 MG TAB (S0181) PO PRN (17:30)
--- NOTE | 2019-10-19 17:44 | HPEPDOC ---
[facility] Medical History & Physical Date of Admission Oct 19, 2019 Date of Service: Oct 19, 2019 Attending Physician: LISSETTE KAUR MD History and Physical CHIEF COMPLAINT: Recall falls HISTORY OF PRESENT ILLNESS: 84-year-old female with past medical history of hypertension, hypothyroidism, squamous cell carcinoma of the vulva, status post resection/chemoradiation/brachytherapy presents from home with frequent falls. Patient has had multiple surgeries for carcinoma of the vulva, most recently und erwent brachytherapy at [place]. She has been progressively feeling weaker, supposedly has good oral intake, although reports dry mouth and decreased urine output. Patient was seen by her eyedotter/onc who noted another pelvic mass, she has a follow-up appointment later this month. Of note, patient has not urinated since last night, ED nurse unsuccessful to place [place], CT abdomen, pelvis showing enlarged bladder. Patient denies any shortness of breath, chest pain, nausea, vomiting, abdominal pain or diarrhea. She does report occasional constipation. Her only complaint at this time is pelvic pain. 10 point review of system is negative so for above PAST MEDICAL HISTORY: 1. Squamous cell carcinoma of the vulva. 2. Hypertension. 3. Hypothyroidism. PAST SURGICAL HISTORY: 1. Vulvar cancer resection. 2. Multiple D&Cs SOCIAL HISTORY: Marital status: . Previous smoker. Denies alcohol use. Denies drug use FAMILY HISTORY: Mother had unknown malignancy ALLERGIES: Please see below. HOME MEDICATIONS: Please see below. PHYSICAL EXAMINATION: VITAL SIGNS: Please see below. GENERAL: No distress HEENT: Normocephalic, atraumatic, dry mucous membranes NECK: Supple CARDIOVASCULAR EXAMINATION: S1, S2, no murmurs RESPIRATORY EXAMINATION: Clear to auscultation, no wheezing ABDOMINAL EXAMINATION: Soft, mild to moderate suprapubic tenderness, nondistended, positive bowel sounds PELVIC: Foul-smelling drainage from vulvar region with significant surrounding erythema, warmth and tenderness to palpation. RN was used to booster plant operator EXTREMITIES: Range of motion intact NEUROLOGICAL EXAMINATION: Alert and oriented 3, no focal deficits PSYCHIATRIC EXAMINATION: Calm and cooperative LABORATORY DATA: See below. IMAGING: CT of the head and abdomen, pelvis performed,pending read MICROBIOLOGY: Please see below. ASSESSMENT: 84-year-old female with past medical history of squamous cell carcinoma of the vulva, hypertension, hypothyroidism, presents with fatigue and recurrent falls. . PLAN: 1. Squamous cell carcinoma of the vulva. Status post surgical resection, chemoradiation and brachytherapy, recent imaging concerning for pelvic mass, has follow-up appointment with RETAIL WIRELESS SALES REPRESENTATIVE/ONC, continue pain control. Physical exam of the lower region concerning for localized infection due to patient's history plus urinary incontinence, empiric vancomycin/Zosyn, cultures pending, IV hydration. Patient with distended bladder on CT scan, RN, unsuccessful in placing Del[place]adillo catheter given patient's anatomy and prior treatment to the area, urology consulted for Delgadillo placement. 2. Recurrent falls. Clinically dehydrated, weak, on significant pain medication, continue IV hydration, PT/OT, PFS for possible placement. 3. Hypertension. Continue metoprolol with hold parameters 4. Hypothyroidism. Continue levothyroxine DVT prophylaxis: Heparin subcutaneous GI prophylaxis: Not needed Vital Signs Vital Signs Date Time Temp Pulse Resp B/P (MAP) Pulse Ox O2 Delivery O2 Flow Rate FiO2 10/19/19 17:27 20 10/19/19 11:56 97.8 63 131/62 (85) 98 Room Air Laboratory Data Labs 24H Laboratory Tests 2 10/19/19 12:08: Immature Granulocyte % (Auto) 1.0, Neutrophils (%) (Auto) 82.4H, Lymphocytes (%) (Auto) 4.8L, Monocytes (%) (Auto) 9.1H, Eosinophils (%) (Auto) 2.4, Basophils (%) (Auto) 0.3, Neutrophils # (Auto) 9.5H, Lymphocytes # (Auto) 0.6L, Monocytes # (Auto) 1.0H, Eosinophils # (Auto) 0.3, Basophils # (Auto) 0.0, Nucleated Red Blood Cells % (auto) 0.0 10/19/19 12:23: Prothrombin Time 13.7, Prothromb Time International Ratio 1.08, Activated Partial Thromboplast Time 27.3 10/19/19 13:18: Anion Gap 6L, Glomerular Filtration Rate > 60.0, Calcium Level 8.9, Magnesium Level 1.7L, Total Creatine Kinase 195H, Creatine Kinase MB 5.8H, Creatine Kinase MB Relative Index 2.97, Troponin I < 0.02, Thyroid Stimulating Hormone (TSH) 0.707, Free Thyroxine 1.60H CBC/BMP Laboratory Tests 10/19/19 12:08 10/19/19 13:18 Microbiology Microbiology 10/19/19 Urine Culture, Received Pending 10/19/19 Blood Culture, Received Pending 10/19/19 Blood Culture, Received Pending 10/19/19 Wound Culture, Received Pending Home Medications Scheduled Cyanocobalamin (Vitamin B-12) (Vitamin B-12) 500 Mcg Tablet, 500 MCG PO DAILY Levothyroxine Sodium (Levothyroxine Sodium) 100 Mcg Tablet, 100 MCG PO DAILY Metoprolol Tartrate (Metoprolol Tartrate) 50 Mg Tablet, 25 MG PO BID Scheduled PRN Ondansetron HCl (Ondansetron HCl) 4 Mg Tablet, 1 TAB PO Q4HP PRN for nausea/vomiting Oxycodone HCl (Oxycodone HCl) 5 Mg Tablet, 10 MG PO QIDP PRN for pain Take 10 mg po q 4 hours prn pain from cancer Sennosides (Senokot) 8.6 Mg Tablet, 8.6 MG PO BID PRN for CONSTIPATION Allergies Coded Allergies: silver sulfadiazine (Verified Allergy, Severe, 05/27/19) A-FIB/CHADSVASC A-FIB History Current/History of A-Fib/PAF?: No LISSETTE KAUR MD Oct 19, 2019 17:44
[2019-10-19] MEDS ORDERED: PIPERACILLIN/TAZOBACTAM SOD 3.375 GM in D5W MINI-BAG PLUS 50 ML IV SCH ×2 (18:00→20:45)
[2019-10-19] MEDS ORDERED: LIDOCAINE 2% MDV 20 ML VIAL As Ordered ONE (18:05)
--- NOTE | 2019-10-19 18:47 | ECGEPIP ---
[facility] - ED Test Date: 2019-10-19 Pat Name: WILSON CORRIGAN Department: Room: - Gender: Female Career Coach: TC : 1935 Requested By: BECK Huizar Order Number: [id number] Reading MD: Nya De Los Santos Measurements Intervals [place] Rate: 62 P: 53 W[place]: 148 QRS: -7 QRSD: 89 T: 43 QT: 393 QTc: 400 Interpretive Statements SINUS RHYTHM NO PRIOR Electronically Signed on 10-19-2019 18:47:10 EST by Nya De Los Santos
[2019-10-19] MEDS ORDERED: LIDOCAINE 2% INJ 100 MG/5 ML SDV (FOR ANES.) As Ordered ONE (19:40)
[2019-10-19] MEDS ORDERED: fentaNYL 100 MCG/2 ML INJECTION (J3010) As Ordered ONE ×3 (19:40→22:30)
[2019-10-19] MEDS ORDERED: propofoL 200 MG/20 ML VIAL As Ordered ONE ×2 (19:40→19:56)
[2019-10-19] MEDS ORDERED: ZOSYN 3.375 GM VIAL (J2543) As Ordered ONE (19:56)
[2019-10-19] MEDS ORDERED: VANCOMYCIN HCL 1,000 MG, VIAL MATE ADAPTER 1 EACH in D5W 250 ML IV SCH (20:00)
[2019-10-19] MEDS: PIPERACILLIN/TAZOBACTAM SOD 3.375 GM in D5W MINI-BAG PLUS 50 ML IV SCH (20:00)
[2019-10-19] MEDS ORDERED: fentaNYL 100 MCG/2 ML INJECTION (J3010) IV PRN (20:30)
[2019-10-19] MEDS ORDERED: LR 1,000 ML IV SCH (20:30)
[2019-10-19] MEDS ORDERED: ONDANSETRON 4MG/2ML VIAL (J2405) IV PRN (20:30)
[2019-10-19 21:30] VITALS: BP 155/87
[2019-10-19] MEDS ORDERED: PHENYLephrine HCL 500 MCG/5 ML (100MCG/ML) SYRINGE (J2370) As Ordered ONE ×2 (21:30→22:10)
[2019-10-19] MEDS ORDERED: METOCLOPRAMIDE INJ 10MG/2ML VIAL (J2765) As Ordered ONE (21:37)
[2019-10-19] MEDS ORDERED: ONDANSETRON 4MG/2ML VIAL (J2405) As Ordered ONE (21:55)
[2019-10-19 22:00] VITALS: BP 157/74
[2019-10-19] MEDS ORDERED: ROCURONIUM BROMIDE 50 MG/5 ML VIAL As Ordered ONE (22:07)
[2019-10-19] MEDS: METOPROLOL TART 25 MG TABLET PO SCH (22:16)
[2019-10-19] MEDS: VANCOMYCIN HCL 1,000 MG, VIAL MATE ADAPTER 1 EACH in D5W 250 ML IV SCH (22:16)
[2019-10-19] MEDS: HEPARIN SOD (PORCINE) 5000 UNITS/ML VIAL (J1644 PER 1000UNITS) SQ SCH (22:17)
[2019-10-19] MEDS: NS 1,000 ML IV SCH (22:17)
[2019-10-19] MEDS ORDERED: PHENYLEPHRINE INJ 10MG/ML VIAL (J2370) As Ordered ONE (22:19)
[2019-10-19] MEDS ORDERED: SUGAMMADEX SODIUM 500 MG/5 ML VIAL (BRIDION) As Ordered ONE (22:25)
[2019-10-19] MEDS ORDERED: ESMOLOL INJ 100MG/10ML VIAL As Ordered ONE (22:34)
[2019-10-19 23:00] VITALS: BP 131/54
[2019-10-20] VITALS: BP 116/46
[2019-10-20 01:00] VITALS: BP 113/50
[2019-10-20 02:00] VITALS: BP 115/54
[2019-10-20] MEDS: PIPERACILLIN/TAZOBACTAM SOD 3.375 GM in D5W MINI-BAG PLUS 50 ML IV SCH ×4 (03:06→20:26)
[2019-10-20] MEDS: LEVOTHYROXINE 100MCG TABLET (0.1MG) PO SCH (05:43)
[2019-10-20 06:00] VITALS: BP 130/74
--- NOTE | 2019-10-20 06:31 | REP ---
CT brain without contrast: History: Frequent falls. No comparison brain CT. Findings: Digital preliminary financial services sales representative radiographs unremarkable. Bone window settings demonstrate no evidence of skull fracture. Vascular calcification is noted in the distal internal carotid arteries. Visualized paranasal sinuses are clear. No intraorbital abnormality is seen. On soft tissue window settings, there is generalized volume loss. There is no evidence of intracranial hemorrhage. No extra-axial fluid collection is seen. No mass or midline shift is observed. Chaudhry/white differentiation pattern is intact above below the tentorium. Impression: Mild generalized volume loss and vascular calcification. No acute intracranial abnormality. Electronically Signed by Feliberto Malhotra MD 10/20/2019 07:46 A
--- NOTE | 2019-10-20 06:38 | REP ---
CT abdomen and pelvis without IV or oral contrast: History: Pain. Pelvic tumor. Comparison MRI study of the pelvis is from September 11, 2019. Comparison CT study June 17, 2019. CT findings: Preliminary digital utility driver radiograph demonstrates an unremarkable bowel gas pattern. The lung bases are essentially clear. The liver and the spleen are normal in size and homogeneous in texture. No adrenal lesion is seen on either side. Kidneys are morphologically intact. There is opaque material and granular material layering in the dependent portion of the gallbladder consistent with cholelithiasis. No abnormalities noted in the pancreas. Small and large bowel loops are normal in the upper abdomen. No intrapelvic mass or adenopathy is observed. No uterine or ovarian abnormality is seen. Urinary bladder is unremarkable. The previously noted peroneal abnormality is again seen with extensive contour deformity, induration and indentation of the skin in the left anterior peroneum in the region of the mons pubis. There is posterior peroneal spiculated induration and density as well extending down from the level of the anal verge. This is similar to prior CT study. There is a little more irregularity and skin indentation in the mons pubis region. No definite inguinal adenopathy is seen. No new mass lesion is observed. Impression: There is some increased skin induration and indentation in the left anterior perineal (mons pubis) process compared to June 17, 2019. No definite adenopathy is seen. Posterior perineal changes are essentially stable. No intrapelvic mass or adenopathy is seen. No bony destructive lesion is appreciated. Electronically Signed by Feliberto Malhotra MD 10/20/2019 07:47 A
[2019-10-20 07:01] LABS: HEMATOCRIT 29.5 % (36.0-47.0); HEMOGLOBIN 9.2 g/dl (12.0-15.5); MEAN CORPUSCULAR HEMOGLOBIN 27.5 pg (27.0-33.0); MEAN CORPUSCULAR HGB CONC 31.2 g/dl (32.0-36.5); MEAN CORPUSCULAR VOLUME 88.1 fl (80.0-96.0); PLATELET COUNT, AUTOMATED 220 10^3/uL (150-450); RED BLOOD COUNT 3.35 10^6/uL (4.00-5.40); WHITE BLOOD COUNT 9.2 10^3/uL (4.0-10.0)
[2019-10-20 07:21] LABS: ALBUMIN 2.6 GM/DL (3.2-5.2); ALT/SGPT 23 U/L (12-78); BILIRUBIN,TOTAL 0.5 MG/DL (0.2-1.0); BLOOD UREA NITROGEN 14 MG/DL (7-18); CALCIUM LEVEL 8.6 MG/DL (8.8-10.2); CARBON DIOXIDE LEVEL 27 MEQ/L (21-32); CHLORIDE LEVEL 105 MEQ/L (98-107); CREATININE FOR GFR 0.87 MG/DL (0.55-1.30); GLOMERULAR FILTRATION RATE > 60.0 (>32); GLUCOSE, FASTING 88 MG/DL (70-100); MAGNESIUM LEVEL 2.2 MG/DL (1.8-2.4); POTASSIUM SERUM 3.7 MEQ/L (3.5-5.1); SODIUM LEVEL 138 MEQ/L (136-145); TOTAL PROTEIN 6.2 GM/DL (6.4-8.2)
[2019-10-20] MEDS: CYANOCOBALAMIN 500 MCG TAB PO SCH (08:08)
[2019-10-20] MEDS: HEPARIN SOD (PORCINE) 5000 UNITS/ML VIAL (J1644 PER 1000UNITS) SQ SCH ×2 (08:10→20:26)
[2019-10-20] MEDS: VANCOMYCIN HCL 1,000 MG, VIAL MATE ADAPTER 1 EACH in D5W 250 ML IV SCH ×2 (08:11→21:29)
[2019-10-20] MEDS: METOPROLOL TART 25 MG TABLET PO SCH ×2 (08:11→20:25)
[2019-10-20] MEDS: NS 1,000 ML IV SCH ×2 (09:35→17:51)
[2019-10-20] MEDS: SENOKOT S TAB PO PRN (09:36)
[2019-10-20] MEDS: ACETAMINOPHEN TAB 650MG DOSE (2X325MG) PO PRN (12:55)
[2019-10-20] MEDS: oxyCODONE 5MG TAB PO PRN ×2 (12:55→20:24)
[2019-10-20 14:00] VITALS: BP 140/51
--- NOTE | 2019-10-20 19:06 | IPNPDOC ---
Date Seen The patient was seen on 10/20/19. Progress Note SUBJECTIVE: 84-year-old female with past medical history of hypertension, hypothyroidism, squamous cell carcinoma of the vulva, status post resection/chemoradiation/brachytherapy presents from home with frequent falls. Patient has had multiple surgeries for carcinoma of the vulva, most recently u nderwent brachytherapy at [facility]. She has been progressively feeling weaker, supposedly has good oral intake, although reports dry mouth and decreased urine output. Patient was seen by her legal analyst/onc who noted another pelvic mass, she has a follow-up appointment later this month. Of note, patient has not urinated since last night, ED nurse unsuccessful to place Delgadillo, CT abdomen, pelvis showing enl arged bladder. Patient denies any shortness of breath, chest pain, nausea, vomiting, abdominal pain or diarrhea. She does report occasional constipation. Her only complaint at this time is pelvic pain. 10/20/19 No acute events overnight, had a Delgadillo placed in the OR by Urology. She continues to have significant groin pain, no other complaints. 10 point review of system is negative so for above PHYSICAL EXAMINATION: VITAL SIGNS: Please see below. GENERAL: No distress HEENT: Normocephalic, atraumatic, dry mucous membranes NECK: Supple CARDIOVASCULAR EXAMINATION: S1, S2, no murmurs RESPIRATORY EXAMINATION: Clear to auscultation, no wheezing ABDOMINAL EXAMINATION: Soft, no tenderness, nondistended, positive bowel sounds PELVIC: Foul-smelling drainage from vulvar region with significant surrounding erythema, warmth and tenderness to palpation. EXTREMITIES: Range of motion intact NEUROLOGICAL EXAMINATION: Alert and oriented 3, no focal deficits PSYCHIATRIC EXAMINATION: Calm and cooperative LABORATORY DATA: See below. IMAGING: CT of the head and abdomen, pelvis performed,pending read MICROBIOLOGY: Please see below. ASSESSMENT: 84-year-old female with past medical history of squamous cell carcinoma of the vulva, hypertension, hypothyroidism, presents with fatigue and recurrent falls. PLAN: 1. Squamous cell carcinoma of the vulva. Status post surgical resection, chemoradiation and brachytherapy, recent imaging concerning for pelvic mass, has follow-up appointment with [facility]/ONC, continue pain control. Physical exam of the lower region concerning for localized infection vs chronic post treatment changes, continue empiric vancomycin/Zosyn, cultures pending, IV hydration. Patient will likely require placement as her is unable to care for her, will discuss goals of care regarding palliative/hospice. 2. Recurrent falls. continue IV hydration, PT/OT, PFS for possible placement. 3. Hypertension. Continue metoprolol with hold parameters 4. Hypothyroidism. Continue levothyroxine 5. urinary retention - required Delgadillo catheter placement in the OR due to anatomy and pain. DVT prophylaxis: Heparin subcutaneous GI prophylaxis: Not needed VS, I&O, 24H, Fishbone Vital Signs/I&O Vital Signs Date Time Temp Pulse Resp B/P (MAP) Pulse Ox O2 Delivery O2 Flow Rate FiO2 10/20/19 14:00 98.0 53 18 140/51 (80) 93 Room Air I&O- Last 24 Hours up to 6 AM 10/20/19 06:00 Intake Total 1890 ml Output Total 400 ml Balance 1490 ml Laboratory Data 24H LABS Laboratory Tests 2 10/20/19 06:34: Nucleated Red Blood Cells % (auto) 0.0, Anion Gap 6L, Glomerular Filtration Rate > 60.0, Calcium Level 8.6L, Magnesium Level 2.2, Total Bilirubin 0.5, Aspartate Amino Transf (AST/SGOT) 20, Alanine Aminotransferase (ALT/SGPT) 23, Alkaline Phosphatase 67, Total Protein 6.2L, Albumin 2.6L, Albumin/Globulin Ratio 0.72L CBC/BMP Laboratory Tests 10/20/19 06:34 Microbiology Microbiology 10/19/19 Urine Culture, Received Pending 10/19/19 Blood Culture - Preliminary, Resulted No growth after 24 hours . All specim... 10/19/19 Blood Culture - Preliminary, Resulted No growth after 24 hours . All specim... 10/19/19 Wound Culture, Received Pending LISSETTE KAUR MD Oct 20, 2019 19:06
[2019-10-20 22:00] VITALS: BP 131/60
[2019-10-21] MEDS: PIPERACILLIN/TAZOBACTAM SOD 3.375 GM in D5W MINI-BAG PLUS 50 ML IV SCH ×2 (02:30→08:11)
[2019-10-21] MEDS: oxyCODONE 5MG TAB PO PRN ×4 (02:30→20:33)
[2019-10-21 06:00] VITALS: BP 134/60
[2019-10-21] MEDS ORDERED: LevoFLOXacin 750 MG TABLET PO SCH (06:00)
[2019-10-21] MEDS: LEVOTHYROXINE 100MCG TABLET (0.1MG) PO SCH (06:28)
[2019-10-21 08:00] VITALS: BP 132/62
[2019-10-21 08:12] LABS: HEMATOCRIT 30.5 % (36.0-47.0); HEMOGLOBIN 9.6 g/dl (12.0-15.5); MEAN CORPUSCULAR HEMOGLOBIN 27.3 pg (27.0-33.0); MEAN CORPUSCULAR HGB CONC 31.5 g/dl (32.0-36.5); MEAN CORPUSCULAR VOLUME 86.6 fl (80.0-96.0); PLATELET COUNT, AUTOMATED 223 10^3/uL (150-450); RED BLOOD COUNT 3.52 10^6/uL (4.00-5.40)
[2019-10-21 08:38] LABS: BLOOD UREA NITROGEN 11 MG/DL (7-18); C REACTIVE PROTEIN QUANTITATIV 3.18 MG/DL (0.00-0.30); CALCIUM LEVEL 8.5 MG/DL (8.8-10.2); CARBON DIOXIDE LEVEL 27 MEQ/L (21-32); CHLORIDE LEVEL 108 MEQ/L (98-107); CREATININE FOR GFR 0.94 MG/DL (0.55-1.30); GLOMERULAR FILTRATION RATE > 60.0 (>32); GLUCOSE, FASTING 93 MG/DL (70-100); SODIUM LEVEL 141 MEQ/L (136-145)
[2019-10-21 08:45] LABS: ERYTHROCYTE SEDIMENTATION RATE 68 mm/hr (0-30)
[2019-10-21 09:00] VITALS: BP 132/62
[2019-10-21] MEDS: HEPARIN SOD (PORCINE) 5000 UNITS/ML VIAL (J1644 PER 1000UNITS) SQ SCH ×2 (09:00→20:30)
[2019-10-21] MEDS: NS 1,000 ML IV SCH (09:15)
[2019-10-21] MEDS: SENOKOT S TAB PO PRN (09:15)
[2019-10-21] MEDS: ACETAMINOPHEN TAB 650MG DOSE (2X325MG) PO PRN ×3 (09:17→23:45)
[2019-10-21] MEDS: CYANOCOBALAMIN 500 MCG TAB PO SCH (09:56)
[2019-10-21] MEDS: METOPROLOL TART 25 MG TABLET PO SCH ×2 (09:56→20:30)
[2019-10-21 14:00] VITALS: BP 119/51
[2019-10-21] MEDS ORDERED: BISACODYL 10 MG SUPP PR PRN (16:15)
--- NOTE | 2019-10-21 18:40 | IPNPDOC ---
Date Seen The patient was seen on 10/21/19. Progress Note SUBJECTIVE: 84-year-old female with past medical history of hypertension, hypothyroidism, squamous cell carcinoma of the vulva, status post resection/chemoradiation/brachytherapy presents from home with frequent falls. Patient has had multiple surgeries for carcinoma of the vulva, most recently u nderwent brachytherapy at [place]. She has been progressively feeling weaker, supposedly has good oral intake, although reports dry mouth and decreased urine output. Patient was seen by her supervisor fleshing/onc who noted another pelvic mass, she has a follow-up appointment later this month. Of note, patient has not urinated since last night, ED nurse unsuccessful to place Delgadillo, CT abdomen, pelvis showing enl arged bladder. Patient denies any shortness of breath, chest pain, nausea, vomiting, abdominal pain or diarrhea. She does report occasional constipation. Her only complaint at this time is pelvic pain. 10/20/19 No acute events overnight, had a Delgadillo placed in the OR by Urology. She continues to have significant groin pain, no other complaints. 10/21/19 Patient seen in the morning, comfortable in bed, discussed goals with patient and at bedside, would like to continue complete medical management at this time. Patient is awaiting PT eval regarding discharge home versus rehabilitation, social scientist to arrange placement if needed. 10 point review of system is negative so for above PHYSICAL EXAMINATION: VITAL SIGNS: Please see below. GENERAL: No distress HEENT: Normocephalic, atraumatic, dry mucous membranes NECK: Supple CARDIOVASCULAR EXAMINATION: S1, S2, no murmurs RESPIRATORY EXAMINATION: Clear to auscultation, no wheezing ABDOMINAL EXAMINATION: Soft, no tenderness, nondistended, positive bowel sounds PELVIC: Foul-smelling drainage from vulvar region with significant surrounding erythema, warmth and tenderness to palpation, unchanged. EXTREMITIES: Range of motion intact NEUROLOGICAL EXAMINATION: Alert and oriented 3, no focal deficits PSYCHIATRIC EXAMINATION: Calm and cooperative LABORATORY DATA: See below. MICROBIOLOGY: Please see below. ASSESSMENT: 84-year-old female with past medical history of squamous cell carcinoma of the vulva, hypertension, hypothyroidism, presents with fatigue and recurrent falls. PLAN: 1. Squamous cell carcinoma of the vulva. Status post surgical resection, chemoradiation and brachytherapy, recent imaging concerning for new pelvic mass, has follow-up appointment with [facility], continue pain control. Wound/urine cultures grew pansensitive pseudomonas, switch antibiotics to Levaquin, oral intake adequate, discontinue IV fluids. Awaiting PT eval regarding discharge home versus rehabilitation, social scientist aware and will arrange placement if needed. 2. Recurrent falls. Likely multifactorial, adequately hydrated, continue PT/OT. 3. Hypertension. Continue metoprolol with hold parameters 4. Hypothyroidism. Continue levothyroxine 5. urinary retention - required Delgadillo catheter placement in the OR due to anatomy and pain. DVT prophylaxis: Heparin subcutaneous GI prophylaxis: Not needed VS, I&O, 24H, Fishbone Vital Signs/I&O Vital Signs Date Time Temp Pulse Resp B/P (MAP) Pulse Ox O2 Delivery O2 Flow Rate FiO2 10/21/19 15:36 18 Room Air 10/21/19 14:00 98.4 55 119/51 (73) 96 I&O- Last 24 Hours up to 6 AM 10/21/19 06:00 Intake Total 1240 ml Output Total 2850 ml Balance -1610 ml Laboratory Data 24H LABS Laboratory Tests 2 10/21/19 07:59: Nucleated Red Blood Cells % (auto) 0.0, Erythrocyte Sedimentation Rate 68H, Anion Gap 6L, Glomerular Filtration Rate > 60.0, Calcium Level 8.5L, C-Reactive Protein, Quantitative 3.18H, Vancomycin Level Trough 18.1 CBC/BMP Laboratory Tests 10/21/19 07:59 Microbiology Microbiology 10/19/19 Urine Culture - Final, Complete Pseudomonas Aeruginosa 10/19/19 Blood Culture - Preliminary, Resulted No Growth after 48 hours. All Specime... 10/19/19 Blood Culture - Preliminary, Resulted No Growth after 48 hours. All Specime... 10/19/19 Wound Culture - Final, Complete Pseudomonas Aeruginosa LISSETTE KAUR MD Oct 21, 2019 18:40
[2019-10-21 22:00] VITALS: BP 133/71
[2019-10-22] MEDS: oxyCODONE 5MG TAB PO PRN ×3 (02:56→13:46)
[2019-10-22 06:00] VITALS: BP 161/73
[2019-10-22 06:11] LABS: HEMATOCRIT 29.7 % (36.0-47.0); HEMOGLOBIN 9.2 g/dl (12.0-15.5); MEAN CORPUSCULAR HEMOGLOBIN 27.5 pg (27.0-33.0); MEAN CORPUSCULAR VOLUME 88.7 fl (80.0-96.0); PLATELET COUNT, AUTOMATED 226 10^3/uL (150-450); RED BLOOD COUNT 3.35 10^6/uL (4.00-5.40)
[2019-10-22 06:41] LABS: BLOOD UREA NITROGEN 8 MG/DL (7-18); CALCIUM LEVEL 8.6 MG/DL (8.8-10.2); CARBON DIOXIDE LEVEL 27 MEQ/L (21-32); CHLORIDE LEVEL 110 MEQ/L (98-107); CREATININE FOR GFR 0.81 MG/DL (0.55-1.30); GLOMERULAR FILTRATION RATE > 60.0 (>32); GLUCOSE, FASTING 87 MG/DL (70-100); POTASSIUM SERUM 3.7 MEQ/L (3.5-5.1); SODIUM LEVEL 140 MEQ/L (136-145)
[2019-10-22] MEDS: LEVOTHYROXINE 100MCG TABLET (0.1MG) PO SCH (07:15)
[2019-10-22] MEDS: ACETAMINOPHEN TAB 650MG DOSE (2X325MG) PO PRN ×2 (07:15→13:47)
[2019-10-22] MEDS: CYANOCOBALAMIN 500 MCG TAB PO SCH (08:46)
[2019-10-22 08:48] VITALS: BP 161/73
[2019-10-22] MEDS: METOPROLOL TART 25 MG TABLET PO SCH (08:48)
[2019-10-22] MEDS: HEPARIN SOD (PORCINE) 5000 UNITS/ML VIAL (J1644 PER 1000UNITS) SQ SCH (08:52)
--- NOTE | 2019-10-22 09:46 | RO ---
DATE OF PROCEDURE: 10/19/2019 PREOPERATIVE DIAGNOSIS: History of vulvar carcinoma and urinary retention. POSTOPERATIVE DIAGNOSIS: History of vulvar carcinoma and urinary retention. OPERATIVE PROCEDURE PERFORMED: 1. Cystoscopy. 2. Placement of Delgadillo catheter. SURGEON: Mark Coles MD BOILER CONTROL ROOM OPERATOR: ANESTHESIA: General anesthesia. ESTIMATED BLOOD LOSS: Minimal. INDICATIONS: Ms. Lloyd is an 84-year-old woman with a history of metastatic vulvar carcinoma who presented to the emergency room with a poorly healing pelvic wound and urinary retention. Attempts at placing both a Delgadillo catheter and a suprapubic tube in the ER were unsuccessful and she is now being taken to the operating room for placement of said catheter. DESCRIPTION OF PROCEDURE: Patient brought into the operating room and placed in supine position. After administration of general anesthesia, she was placed in dorsal lithotomy position and prepped and draped in the usual sterile fashion. Flexible cystoscopy was performed. The urethral meatus was discovered in the midst of scarred and retracted vaginal and vulvar tissue. The anterior and posterior urethra were noted to be stenotic and there were floaters seen in the bladder. The bladder was entered with minimal difficulty. There was a moderate bladder distention appreciated. The visualized bladder mucosa was largely normal. A small poke hole was seen to the right of midline in the dome from previous attempt at suprapubic tube placement. A wire was placed through the flexible cystoscope into the bladder and the flexible cystoscope was removed. A 16 [place] tip catheter was then placed over this wire into the bladder with a quick return of approximately 450 mL of concentrated urine. There was minimal bleeding appreciated. The catheter was placed to gravity drainage. The balloon was inflated to 10 mL with sterile water. Anesthesia was reversed and the patient was transferred to a bed and taken to the postanesthesia care unit in good condition. Of note, the needle and instrument count were correct at the conclusion of the case. KIMBERLEY
[2019-10-22] MEDS ORDERED: LEVA750T7 PO (11:04)
--- NOTE | 2019-10-22 12:51 | CR ---
ADVANCED WOUND CARE CONSULT VIA TELEMEDICINE DATE OF CONSULTATION: 10/21/2019 Consult requested by Homero Ni DO, regarding treatment for advanced vulvar cancer. This is an 84-year-old female with advanced squamous cell vulvar cancer, partially resected in [place] at [facility] and is now on palliative care. There is a pelvic mass noted. The wound involves the left paralabial infrainguinal area and is estimated at 7.0 cm x 3.0 cm with a depth of more than 2.0 cm. The patient now has a Delgadillo catheter, and the wound is painful. It is hard to estimate what the involvement of the deep structures are. With a lesion of this type and location the patient is at risk for a vaginorectal fistula and/or active bleeding. This is palliative care, and my treatment recommendations would be to clean the wound with Vashe wound cleanser, use Desitin on the periwound, and loosely insert alginate into the wound, covered with a foam dressing. This should be changed on an every day basis and/or PRN, depending upon the amount of drainage. When dressing changes occur the patient should receive some sedation and the alginate should be irrigated out with saline. It will appear semi-liquefied and this is a normal finding. Once removed the wound can be cleansed with 5 soaking a 4 x 4 and gently inserting it into the wound leaving it there for 10 minutes. The alginate is then reinserted. KIMBERLEY
--- NOTE | 2019-10-22 20:44 | DS.PDOC ---
Discharge Summary General Date of Admission Oct 19, 2019 at 17:22 Date of Discharge 10/22/19 Attending Physician: LISSETTE KAUR MD Discharge Summary PROCEDURES PERFORMED DURING STAY: None ADMITTING DIAGNOSES: 1. UTI, cellulitis, urinary retention, skin excoriation DISCHARGE DIAGNOSES: 1. UTI, cellulitis, urinary retention, skin excoriation COMPLICATIONS/CHIEF COMPLAINT: Cellulitis. HISTORY OF PRESENT ILLNESS: 84 y.o female w/ PMH of squamous cell ca of the vulva was admitted for UTI, skin excoriation around the vulvar region related to treatment (chemoradiation & brachytherapy) along with urinary incontinence, cultures grew pansensitive Pseudomonas, antibiotics switched to Levaquin; she will be discharged on Levaquin to complete her antibiotic regimen. She also had urinary retention upon presentation, required Delgadillo placement in the OR by Urology. She was evaluated by PT and cleared for discharge home with home services. Patient is clinically and hemodynamcially stable for discharge and outpatient follow up. She is advised to follow up w/ [facility], Urologist & PCP. HOSPITAL COURSE: As above DISCHARGE MEDICATIONS: Please see below. ALLERGIES: Please see below. PHYSICAL EXAMINATION: VITAL SIGNS: Please see below. GENERAL: No distress HEENT: Normocephalic, atraumatic, dry mucous membranes NECK: Supple CARDIOVASCULAR EXAMINATION: S1, S2, no murmurs RESPIRATORY EXAMINATION: Clear to auscultation, no wheezing ABDOMINAL EXAMINATION: Soft, no tenderness, nondistended, positive bowel sounds PELVIC: Foul-smelling drainage from vulvar region with significant surrounding erythema, warmth and tenderness to palpation, unchanged. EXTREMITIES: Range of motion intact NEUROLOGICAL EXAMINATION: Alert and oriented 3, no focal deficits PSYCHIATRIC EXAMINATION: Calm and cooperative LABORATORY DATA: Please see below. PROGNOSIS: Guarded ACTIVITY: [As tolerated]. DIET: Cardiac DISCHARGE PLAN: f/u with [facility], Urologist & PCP in 1-2 weeks DISPOSITION: 06 Home Health Service. DISCHARGE INSTRUCTIONS: 1. As above DISCHARGE CONDITION: Stable TIME SPENT ON DISCHARGE: Greater than 25 minutes. Vital Signs/I&Os Vital Signs Date Time Temp Pulse Resp B/P (MAP) Pulse Ox O2 Delivery O2 Flow Rate FiO2 10/22/19 13:46 18 Room Air 10/22/19 08:48 69 161/73 10/22/19 06:00 98.4 96 I&O- Last 24 Hours up to 6 AM 10/22/19 06:00 Intake Total 1044 ml Output Total 2300 ml Balance -1256 ml Laboratory Data Labs 24H Laboratory Tests 2 10/22/19 05:44: Nucleated Red Blood Cells % (auto) 0.0, Anion Gap 3L, Glomerular Filtration Rate > 60.0, Calcium Level 8.6L CBC/BMP Laboratory Tests 10/22/19 05:44 Microbiology Microbiology 10/19/19 Urine Culture - Final, Complete Pseudomonas Aeruginosa 10/19/19 Blood Culture - Preliminary, Resulted No Growth after 72 hours. All specime... 10/19/19 Blood Culture - Preliminary, Resulted No Growth after 72 hours. All specime... 10/19/19 Wound Culture - Final, Complete Pseudomonas Aeruginosa Discharge Medications Scheduled Cyanocobalamin (Vitamin B-12) (Vitamin B-12) 500 Mcg Tablet, 500 MCG PO DAILY, (Reported) Levofloxacin (Levaquin) 750 Mg Tablet, 750 MG PO Q48H Levothyroxine Sodium (Levothyroxine Sodium) 100 Mcg Tablet, 100 MCG PO DAILY, (Reported) Metoprolol Tartrate (Metoprolol Tartrate) 50 Mg Tablet, 25 MG PO BID, (Reported) Scheduled PRN Ondansetron HCl (Ondansetron HCl) 4 Mg Tablet, 1 TAB PO Q4HP PRN for nausea/vomiting Oxycodone HCl (Oxycodone HCl) 5 Mg Tablet, 10 MG PO QIDP PRN for pain Take 10 mg po q 4 hours prn pain from cancer Sennosides (Senokot) 8.6 Mg Tablet, 8.6 MG PO BID PRN for CONSTIPATION, (Reported) Allergies Coded Allergies: silver sulfadiazine (Verified Allergy, Severe, 05/27/19) LISSETTE KAUR MD Oct 22, 2019 20:44
== END 2019-10-22 14:15 | disposition home health service (06) | DRG 755 ==
LOC: EDBD 11:37 → M ED 11:37 → M ED INP 17:22 → ENRESERV 17:59 → M MS5PR 21:15
PROVIDERS: ADMIT Internal Medicine; ATTEND Internal Medicine
DX: C51.9 Malignant neoplasm of vulva, unspecified (principal); N39.0 Urinary tract infection, site not specified; R31.9 Hematuria, unspecified; B96.5 Pseudomonas (aeruginosa) (mallei) (pseudomallei) as the cause of diseases classified elsewhere; Z79.899 Other long term (current) drug therapy; Z88.2 Allergy status to sulfonamides; I10 Essential (primary) hypertension; E03.9 Hypothyroidism, unspecified; R29.6 Repeated falls; Z87.891 Personal history of nicotine dependence; E86.0 Dehydration; R19.09 Other intra-abdominal and pelvic swelling, mass and lump; Z51.5 Encounter for palliative care; N76.2 Acute vulvitis

== ENCOUNTER 2019-10-29 13:34 | Inpatient (IN) | payer MEDICARE ==
[~2019-10-29] VITALS: Ht 157.5 cm; Wt 71.5 kg
[~2019-10-29 13:34] MED LIST changes: +LEVA750T7 PO
[2019-10-29] MEDS ORDERED: ADACEL/BOOSTRIX VACCINE (DIPHTH/PERTUSS/ACELL/TETANUS)0.5ML SYR (90715) IM ONE (14:00)
[2019-10-29] MEDS ORDERED: MORP-69 (14:06)
[2019-10-29] MEDS ORDERED: FERR325T18 (14:06)
[2019-10-29] MEDS ORDERED: ASPI81TA85 PO (14:06)
[2019-10-29] MEDS ORDERED: EUCE1CRE2 (14:06)
[2019-10-29 14:20] LABS: BASO % 0.4 % (0.0-1.0); EOS # 0.1 10^3/uL (0.0-0.5); EOS % 1.7 % (0.0-3.0); HEMATOCRIT 36.2 % (36.0-47.0); HEMOGLOBIN 11.4 g/dl (12.0-15.5); LYMPH # 0.4 10^3/uL (1.5-5.0); LYMPH % 5.3 % (24.0-44.0); MEAN CORPUSCULAR HEMOGLOBIN 27.7 pg (27.0-33.0); MEAN CORPUSCULAR HGB CONC 31.5 g/dl (32.0-36.5); MEAN CORPUSCULAR VOLUME 88.1 fl (80.0-96.0); MONO # 0.6 10^3/uL (0.0-0.8); MONO % 7.2 % (0.0-5.0); NEUTROPHILS % 84.1 % (36.0-66.0); PLATELET COUNT, AUTOMATED 324 10^3/uL (150-450); RED BLOOD COUNT 4.11 10^6/uL (4.00-5.40); WHITE BLOOD COUNT 8.4 10^3/uL (4.0-10.0)
[2019-10-29 14:35] LABS: INR 1.07; PROTHROMBIN TIME 13.6 SECONDS (11.8-14.0)
[2019-10-29 14:36] LABS: PARTIAL THROMBOPLASTIN TIME 29.4 SECONDS (25.0-38.4)
[2019-10-29 14:49] LABS: BLOOD UREA NITROGEN 29 MG/DL (7-18); CALCIUM LEVEL 9.3 MG/DL (8.8-10.2); CARBON DIOXIDE LEVEL 29 MEQ/L (21-32); CHLORIDE LEVEL 103 MEQ/L (98-107); CK-MB VALUE MASS 4.4 NG/ML (<3.6); CPK CREATINE PHOSPHOKINASE 95 U/L (26-192); CREATININE FOR GFR 1.11 MG/DL (0.55-1.30); FREE T4 1.68 NG/DL (0.76-1.46); GLUCOSE, FASTING 106 MG/DL (70-100); MAGNESIUM LEVEL 2.3 MG/DL (1.8-2.4); MB/CK RELATIVE INDEX 4.63 (< OR =4); SODIUM LEVEL 139 MEQ/L (136-145); THYROID STIMULATING HORMONE 0.688 uIU/ML (0.358-3.740); TROPONIN I < 0.02 NG/ML (< 0.10)
--- NOTE | 2019-10-29 14:57 | REP ---
CT study of the cervical spine without contrast: History: Syncope. Technique: Helical scanning is acquired and overlapping 2 mm high resolution axial images were generated and reviewed at bone and soft tissue window settings. Coronal and sagittal multiplanar re-formations images are generated. CT findings: There is no evidence of cervical spine element fracture. No skull base fracture is seen. Cervical vertebral body heights are preserved. Alignment is normal. Facet joints are normally aligned bilaterally at each cervical level on multiplanar re-formations images. There is no evidence of intraspinal or paraspinal hematoma. No extra vertebral abnormality is seen. There are diffuse mild degenerative disc and mild to moderate osteoarthritic facet changes. Vascular calcification is noted in the carotid bifurcations bilaterally. There are pleuroparenchymal fibrotic changes in the lung apices bilaterally. A right-sided [id number] catheter is seen. Impression: Degenerative spondylosis changes in the cervical spine. Otherwise negative CT study of the cervical spine without contrast. No fracture seen. Electronically Signed by Feliberto Malhotra MD 10/29/2019 02:49 P
--- NOTE | 2019-10-29 15:06 | REP ---
CT BRAIN WITHOUT IV CONTRAST: CT brain performed without IV contrast. Coronal reconstruction images are performed. There is moderate atrophy. There is no midline shift or mass effect. There are mild periventricular small vessel ischemic changes which are chronic. There is no acute intracranial hemorrhage. There is no extra-axial fluid collection. No skull fracture is seen. There is soft tissue swelling of the left posterior parietal region. IMPRESSION: Atrophy without evidence of acute intracranial hemorrhage or skull fracture. Electronically Signed by Justen Chaudhry MD 10/30/2019 09:11 A
--- NOTE | 2019-10-29 16:09 | REP ---
CHEST, TWO VIEWS: Two views of the chest are performed. No acute infiltrate is seen. Heart is not enlarged. There is calcification of the thoracic aorta. Mediastinal silhouette is unchanged. There is mild apical pleural thickening unchanged. Right central venous catheter is again seen with the tip in the superior vena cava. There are degenerative changes of the spine. IMPRESSION: No acute pulmonary disease. Electronically Signed by Justen Chaudhry MD 10/30/2019 09:18 A
[2019-10-29] MEDS ORDERED: oxyCODONE 5MG TAB PO ONE (16:15)
[2019-10-29] MEDS ORDERED: ACET-897 PO (16:23)
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
[2019-10-29 19:00] VITALS: BP 146/61
--- NOTE | 2019-10-29 20:16 | ECGEPIP ---
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
[2019-10-29] MEDS: SENOKOT S TAB PO SCH (21:00)
[2019-10-29] MEDS: **hydrALAZINE HCL** 25 MG TAB PO SCH (21:00)
[2019-10-29] MEDS: HEPARIN SOD (PORCINE) 5000 UNITS/ML VIAL (J1644 PER 1000UNITS) SC SCH (21:21)
[2019-10-29] MEDS: ACETAMINOPHEN 500 MG TAB PO PRN (21:50)
[2019-10-30 05:43] VITALS: BP_SYST 155; BP_SYST 158; BP_SYST 166; BP_DIAS 58; BP_DIAS 70; BP_DIAS 71
[2019-10-30] MEDS: LEVOTHYROXINE 100MCG TABLET (0.1MG) PO SCH (05:49)
[2019-10-30 06:00] VITALS: BP 166/76
[2019-10-30] MEDS: SENOKOT S TAB PO SCH ×2 (09:00→20:22)
[2019-10-30] MEDS: CYANOCOBALAMIN 500 MCG TAB PO SCH (09:34)
[2019-10-30] MEDS: **hydrALAZINE HCL** 25 MG TAB PO SCH ×3 (09:34→20:22)
[2019-10-30] MEDS: HEPARIN SOD (PORCINE) 5000 UNITS/ML VIAL (J1644 PER 1000UNITS) SC SCH ×2 (09:35→20:21)
[2019-10-30] MEDS: ACETAMINOPHEN 500 MG TAB PO PRN (09:37)
--- NOTE | 2019-10-30 12:51 | IPNPDOC ---
Subjective Date Seen The patient was seen on 10/30/19. Subjective Chief Complaint/HPI Severe pain in the perineal region. Unable to sit down due to pain. Patient had been refusing dressing at home. Telemetry no events. Objective Physical Examination General Exam: Positive: Alert, Cooperative, No Acute Distress Eye Exam: Positive: PERRLA, Conjunctiva & lids normal, EOMI; Negative: Sclera icteric ENT Exam: Positive: Atraumatic, Mucous membr. moist/pink, Pharynx Normal Neck Exam: Positive: Supple; Negative: JVD, thyromegaly Chest Exam: Positive: Clear to auscultation, Normal air movement Heart Exam: Positive: Rate Normal, Regular Rhythm, Normal S1, Normal S2; Negative: Murmurs, Rubs Abdomen Exam: Positive: Normal bowel sounds, Soft, Tenderness (more inteh right lower quadrant. ), Other (perineal exam shows bilateral vulva open wound with fibrin deposition) Female Exam: Positive: Lesions (there is a chronic irregular open deep wound on the vulvar area with fibrin deposition, swelling of the whole perineum), [place] Extremity Exam: Positive: Tenderness (right kneee), Swelling (right knee); Negative: Clubbing, Cyanosis, Edema Neuro Exam: Positive: Normal Speech, Strength at 5/5 X4 ext, Normal Tone Psych Exam: Positive: Memory Intact, Oriented x 3 Assessment /Plan Assessment Syncope with scalp injury she reports that she was dosing off while standing which could be due to her pain meds. She may have dosed off while standing and fallen backwards. She reports that as she was falling she came too and tried to grab something but could not reach anything. It could be also be due to vasovagal from severe pain in the perineal area. 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 Hypertension with hypertensive urgency on presentation possibly due to pain continue metoprolol. will give hydralazine if needed. Hypothyroidism. synthroid vit d def continue supplements vit B12 def continue supplements. H/o urinary retention s/p cystoscopy guided britton placement on 10/22/19 showed anterior and posterior urethral stricture. Bladder wall was normal. Britton was removed on 10/28/19 at her CO TEACHER oncology visit and they tested her for post void residual which was negative. DME requirement: Hospital bed. Patient with metastatic vulval cancer difficulty in rapid change of posture and inability to lay down to less than 30 degree due to severe pain and pressure in the pelvis and back. She needs positioning of her body in ways not feasible with ordinary bed in order to alleviate pain. Plan/VTE VTE Prophylaxis Ordered?: Yes VS, I&O, 24H, Fishbone Vital Signs/I&O Vital Signs Date Time Temp Pulse Resp B/P (MAP) Pulse Ox O2 Delivery O2 Flow Rate FiO2 10/30/19 09:34 166/76 10/30/19 06:00 98.4 90 20 95 10/29/19 19:00 Room Air I&O- Last 24 Hours up to 6 AM 10/30/19 06:00 Intake Total 450 ml Output Total 550 ml Balance -100 ml Laboratory Data 24H LABS Laboratory Tests 2 10/29/19 13:54: Immature Granulocyte % (Auto) 1.3, Neutrophils (%) (Auto) 84.1H, Lymphocytes (%) (Auto) 5.3L, Monocytes (%) (Auto) 7.2H, Eosinophils (%) (Auto) 1.7, Basophils (%) (Auto) 0.4, Neutrophils # (Auto) 7.0, Lymphocytes # (Auto) 0.4L, Monocytes # (Auto) 0.6, Eosinophils # (Auto) 0.1, Basophils # (Auto) 0.0, Nucleated Red Blood Cells % (auto) 0.0, Prothrombin Time 13.6, Prothromb Time International Ratio 1.07, Activated Partial Thromboplast Time 29.4, Anion Gap 7L, Glomerular Filtration Rate 50.0, Calcium Level 9.3, Magnesium Level 2.3, Total Creatine Kinase 95, Creatine Kinase MB 4.4H, Creatine Kinase MB Relative Index 4.63H, Troponin I < 0.02, Thyroid Stimulating Hormone (TSH) 0.688, Free Thyroxine 1.68H 10/29/19 14:21: Bedside Glucose (Misc Panel) 101 CBC/BMP Laboratory Tests 10/29/19 13:54 JOHN SANTIAGO MD Oct 30, 2019 12:51
[2019-10-30] MEDS: oxyCODONE 5MG TAB PO PRN ×2 (12:59→20:22)
[2019-10-30 14:00] VITALS: BP 155/70
[2019-10-30] MEDS: DIAPER RELIEF PASTE (DESITIN) 60GM TOP SCH (15:00)
[2019-10-30 22:00] VITALS: BP 161/71
[2019-10-31] MEDS: ACETAMINOPHEN 500 MG TAB PO PRN ×2 (00:12→09:08)
[2019-10-31 06:00] VITALS: BP 151/71
[2019-10-31] MEDS: LEVOTHYROXINE 100MCG TABLET (0.1MG) PO SCH (06:13)
[2019-10-31] MEDS: oxyCODONE 5MG TAB PO PRN ×2 (06:14→12:22)
[2019-10-31] MEDS ORDERED: DOCU100C16 PO (08:55)
[2019-10-31] MEDS ORDERED: SENO8.6T5 PO (08:55)
[2019-10-31 09:00] VITALS: BP 159/68
[2019-10-31] MEDS: HEPARIN SOD (PORCINE) 5000 UNITS/ML VIAL (J1644 PER 1000UNITS) SC SCH (09:00)
[2019-10-31] MEDS: **hydrALAZINE HCL** 25 MG TAB PO SCH (09:00)
[2019-10-31] MEDS: DIAPER RELIEF PASTE (DESITIN) 60GM TOP SCH (09:04)
[2019-10-31] MEDS: SENOKOT S TAB PO SCH (09:04)
[2019-10-31] MEDS: CYANOCOBALAMIN 500 MCG TAB PO SCH (09:04)
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
[2019-11-01] MEDS ORDERED: OXYC-517 PO (11:40)
[2019-11-05] MEDS ORDERED: OXYC-517 PO (14:43)
== END 2019-10-31 12:39 | disposition home or self-care (01) | DRG 312 ==
LOC: M ED 13:34 → M ED INP 17:35 → ENRESERV 18:32 → M MSPAV 19:00
PROVIDERS: ADMIT Internal Medicine Nephrology; ATTEND Internal Medicine Nephrology
DX: R55 Syncope and collapse (principal); C77.9 Secondary and unspecified malignant neoplasm of lymph node, unspecified; I10 Essential (primary) hypertension; E03.9 Hypothyroidism, unspecified; E55.9 Vitamin D deficiency, unspecified; E53.8 Deficiency of other specified B group vitamins; C51.9 Malignant neoplasm of vulva, unspecified; G14 Postpolio syndrome; S01.01XA Laceration without foreign body of scalp, initial encounter; I16.0 Hypertensive urgency; Z79.899 Other long term (current) drug therapy; Z88.2 Allergy status to sulfonamides; W22.09XA Striking against other stationary object, initial encounter; Y92.010 Kitchen of single-family (private) house as the place of occurrence of the external cause

== ENCOUNTER → 2019-11-11 | Outpatient (CLI) | payer MEDICARE ==
[~2019-11-11] MED LIST changes: +ACET-897 PO; +ASPI81TA85 PO; +DOCU100C16 PO; +EUCE1CRE2; +FERR325T18; +MORP-69
--- NOTE | 2019-11-11 19:50 | REP ---
PET/CT: History: Restaging malignant neoplasm of the vulva. Comparisons: Comparison CT abdomen and pelvis October 19, 2019. Comparison PET-CT study March 20, 2019. TECHNIQUE: 57 minutes following the intravenous injection of a 8.97 mCi dose of F-18 FDG, three-dimensional PET scintigraphy is acquired from the skull base to the proximal thighs. Triplanar noncontrast CT scanning is acquired through the same anatomic range for attenuation correction, and image registration with scan parameters optimized to minimize radiation exposure to the patient. PET scintigraphy and CT datasets were fused and displayed on a workstation with multiplanar and projection display capability. PET/CT Findings: No abnormal hypermetabolic uptake is seen in the head and neck soft tissues. No hilar or mediastinal hypermetabolic uptake is observed. There is no abnormal pulmonary parenchymal hypermetabolic uptake seen. In the abdomen and pelvis, normal hepatic and splenic FDG accumulation is seen. Small and large intestinal bowel loops are unremarkable. Cholelithiasis is appreciated. No abnormal retroperitoneal lynne uptake. No pelvic lynne uptake is seen. There is some skeletal muscle uptake about the pelvis. There is residual hypermetabolic uptake in the excavated mass in the left side of the mons pubis and anterior peroneum. Maximum standard uptake value here is 12.86. This is most avid along the inferior extent of this lesion. The linear posteriorly distributed hypermetabolic uptake in the perineum persists although this is improved as well. Maximum standard uptake value here is 6.97. The left-sided mons pubis area mass is much smaller than it was March 20, 2018. The main area measures approximately 6 cm in diameter. No abnormal skeletal hypermetabolic uptake is seen. Impression: The left mons pubis and perineum mass shows significant decrease in size. There is some soft tissue excavation and ulceration in the overlying skin. There is persistent hypermetabolic mass in the perineum. There is no evidence of hypermetabolic intrapelvic or abdominal adenopathy. No intrathoracic or skeletal hypermetabolic uptake is seen. Electronically Signed by Feliberto Malhotra MD 11/12/2019 10:16 A
== END ==
LOC: M PLARAD 10:01
PROVIDERS: ATTEND Internal Medicine Hematology
DX: C51.8 Malignant neoplasm of overlapping sites of vulva (principal)
CPT/HCPCS: 78815; A9552

== ENCOUNTER → 2019-11-15 | Outpatient (CLI) | payer MEDICARE ==
[~2019-11-15] MED LIST changes: +OXYC10TA12 PO
--- NOTE | 2019-11-15 15:10 | REP ---
MRI PELVIS WITHOUT CONTRAST: Limited MRI of the pelvis performed without IV contrast, with axial T1-and T2 fat saturation sequences obtained. Patient could not tolerate further imaging. Comparison made with prior PET/CT 11/11/2019, MRI 09/11/2019. The previously noted mass in the left anterior perineum has decreased. There is some ill-defined nodular soft tissue density is still present. There is diffuse edema in the adjacent soft tissues. There is mild edema and fluid along the left iliopsoas muscle in the pelvis. No mass is seen within the pelvis itself. No adenopathy is seen in the pelvis and there is no free fluid. Visualized osseous structures demonstrate no bone lesion. IMPRESSION: Continued decrease in size of excavated mass in the left anterior perineum compared to the prior MRI of 09/11/2019. The study is limited due to patient motion and no post contrast images could be performed as the patient could not tolerate further imaging. There is mild residual ill-defined nodular soft tissue present. There is edema in the more posterior soft tissues at that level. No other mass is visualized. Electronically Signed by Justen Chaudhry MD 11/15/2019 11:22 P
== END ==
LOC: M RAD 13:24
PROVIDERS: ATTEND Internal Medicine Hematology
DX: C51.8 Malignant neoplasm of overlapping sites of vulva (principal)